=== PATIENT | female | born 1945 | race Caucasian/White ===

== ENCOUNTER 2016-11-20 08:14 | Day surgery (SDC) | payer BC ==
[~2016-11-20 08:14] MED LIST: ACETAMINOPHEN 1,000 MG/100 ML BTL IV ONE
[2016-11-20] MEDS ORDERED: HYDROCODONE/APAP 5/325MG TABLET PO ONE (14:09)
[2016-11-20] MEDS ORDERED: SEVOFLURANE 250 ML INH ONE (14:09)
[2016-11-20] MEDS ORDERED: FENTANYL PF 100MCG/2ML VIAL IV ONE (14:09)
[2016-11-20] MEDS ORDERED: LIDOCAINE 2% MDV (20MG/ML) 20ML VIAL IV ONE (14:09)
[2016-11-20] MEDS ORDERED: MIDAZOLAM HCL 2MG/2ML VIAL IV ONE (14:09)
[2016-11-20] MEDS ORDERED: BUPIVACAINE 0.25% W/EPI MPF 30ML VIAL IVP ONE (14:09)
[2016-11-20] MEDS ORDERED: KETOROLAC 30 MG/ML VIAL IVP ONE (14:09)
[2016-11-20] MEDS ORDERED: ONDANSETRON HCL IV 4 MG/2 ML VIAL IVP ONE (14:09)
[2016-11-20] MEDS ORDERED: PROPOFOL 10 MG/ML VIAL IV ONE (14:09)
--- NOTE | 2016-11-23 10:10 | Operative Note ---
DATE OF SURGERY: 11/20/2016 Surgeon: Farhad Koch DO PREOPERATIVE DIAGNOSIS: Osteoarthritis of the right knee. POSTOPERATIVE DIAGNOSES: 1. Torn medial and lateral meniscus, right knee. 2. Osteoarthritis, right knee. OPERATION: 1. Arthroscopic partial medial and lateral meniscectomy, right knee. 2. Arthroscopic chondroplasty medial femoral condyle and patella, right knee. DESCRIPTION OF PROCEDURE: This 71-year-old female was taken to the operating room, placed in the supine position on the operating room table where general anesthetic was administered. The right lower extremity was elevated, exsanguinated, and tourniquet inflated to 300 mmHg. Arthroscopic knee marte applied. Right knee prepped with Hibiclens and draped in the usual sterile fashion. An inferolateral portal was established for the 4 mm arthroscope, and initial evaluation of the joint demonstrated advanced osteoarthritis of the patellofemoral articulation. Inferomedial portal was established, and probing demonstrated a grade 4 lesion on the medial facet extending to grade 3 changes on the median ridge and lateral facet. Some gross instability of the articular cartilage was present there, and chondroplasty was performed. The trochlea was subsequently examined with a large area of about 2 cm of full-thickness articular cartilage defect on the medial side of the trochlea with complete denuded articular cartilage noted there. The medial compartment was subsequently examined, and grade 2 chondromalacia of the entire weightbearing surface of the medial femoral condyle was present with some gross instability of that cartilage, and partial chondroplasty was performed. There was also evidence of degenerative tearing of the posterior horn of the medial meniscus. Utilizing the basket forceps and rotating shaver, we resected unstable fragments of meniscus. It appeared that there had been an old root tear of the medial meniscus but it was only partially detached. This was then re-probed and confirmed to be stable. We then directed our attention to the intracondylar notch and this was found to be normal. The lateral compartment was entered, and radial tears of the lateral meniscus were present at about the 9:30 to 10-o'clock position. Utilizing the basket forceps and rotating shaver, we resected unstable fragments of the lateral meniscus and formed a smooth contoured surface. This was then probed and found to be stable. The joint was copiously irrigated removing all chips of articular cartilage and meniscal tissue from the joint. The joint was suctioned and the instruments were removed. The portals infiltrated with 0.25% Marcaine with epinephrine. Sutures were placed in the arthroscopic puncture sites. Sterile dressings applied. Tourniquet and knee marte released and the patient taken to the recovery room in satisfactory condition. GROSS PATHOLOGY: This patient demonstrated severe full-thickness articular cartilage loss noted at the patellofemoral joint as discussed previously. In addition, tears of both the medial and lateral meniscus were present. Chondromalacia of the medial femoral condyle was present. MTDD
[2016-12-21] MEDS ORDERED: ACETAMINOPHEN 1,000 MG/100 ML BTL IV ONE (06:00)
== END 2016-11-20 11:31 | disposition home or self-care (01) ==
LOC: SUR 08:14
PROVIDERS: ATTEND Orthopaedic Surgery
DX: S83.281A Other tear of lateral meniscus, current injury, right knee, initial encounter (principal); S83.241A Other tear of medial meniscus, current injury, right knee, initial encounter; M17.11 Unilateral primary osteoarthritis, right knee; E03.9 Hypothyroidism, unspecified; E78.00 Pure hypercholesterolemia, unspecified
CPT/HCPCS: 29880; 29879; 01400; J1885; J2405; J3010

== ENCOUNTER 2016-11-26 00:05 | Emergency (ER) | payer BC ==
[2016-11-26] MEDS ORDERED: IBUPROFEN 600 MG TABLET PO ONE (00:24)
--- NOTE | 2016-11-26 00:30 | Emergency Department Record ---
History of Present Illness - General Chief complaint: Lower Extremity Pain Stated complaint: POST OP KNEE PAIN Time Seen by Provider: 11/26/16 00:12 Source: Patient Mode of Arrival: Ambulatory Limitations: No limitations - History of Present Illness Initial comments: 71 yo female presents to ED with a CC of right knee pain. Patient reports undergoing knee scope [address] Koch for a torn meniscus, reports that her pain and swelling symptoms have worsened over the past several days. Patient reports that she has not been taking anything for pain as Nada makes her nauseated. Patient reports that she has not taken any anti- inflammatory medications as she was recently started on Zithromax and told that these medications could interact. Patient reports pain from the posterior calf to the mid thigh region. Patient denies fevers, chills, warmth or redness to the knee or drainage from her incision site. MD Complaint: Joint pain Onset/Timin -: Days(s) Location: Right Radiation: Proximal, Distal Severity scale (1-10): 8 Consistency: Constant, Getting worse Worsens with: Nothing Associated Symptoms: Denies other symptoms - Related Data Home Medications Medication Instructions Recorded Confirmed Last Taken Calcium Carbonate/Vitamin D3 1 each PO DAILY 10/28/13 11/26/16 10/10/15 [Calcium 500-Vit D3 400 Tablet] Carvedilol [Coreg] 6.25 mg PO BIDWM 10/28/13 11/26/16 10/10/15 Levothyroxine Sodium [Synthroid] 1 tab PO DAILYTHY 10/28/13 11/26/16 10/10/15 Multivitamin [Multi-Vitamin Daily] 1 each PO DAILY 10/28/13 11/26/16 10/10/15 Aspirin Chewable 81 mg PO DAILY 10/10/15 11/26/16 10/10/15 Atorvastatin Calcium 20 mg PO DAILY 10/10/15 11/26/16 Unknown Naproxen [Naprosyn] 500 mg PO BID PRN 10/10/15 11/26/16 Unknown [place]-3 Fatty Acids/Fish Oil [Fish 1,000 mg PO ASDIR 10/10/15 11/26/16 Unknown Oil 1,000 mg Softgel] Previous Rx's Medication Instructions Recorded Ondansetron [Zofran Odt] 4 mg PO Q6H PRN #20 tab.rapdis 11/26/16 Allergies Allergy/AdvReac Type Severity Reaction Status Date / Time hydromorphone HCl AdvReac Intermediate NAUSEA AND Verified 11/19/16 08:35 [From Dilaudid] VOMITING meperidine [From Demerol] AdvReac Intermediate NAUSEA AND Verified 11/19/16 08: 35 VOMITING hydrocodone AdvReac VOMITING Verified 11/26/16 00:15 Travel Screening - Travel/Exposure Within Last 30 Days Have you traveled within the last 30 days?: No - Travel/Exposure Within Last Year Have you traveled outside the [place] in the last year?: No - Additonal Travel Details Have you been exposed to anyone with a communicable illness?: No - Travel Symptoms Symptom Screening: None Review of Systems Constitutional: Denies: Chills, Fever, Malaise, Night sweats Eyes: Denies: Eye discharge, Eye pain, Photophobia ENT: Denies: Congestion, Ear pain, Epistaxis Respiratory: Denies: Cough, Dyspnea Cardiovascular: Denies: Chest pain, Dyspnea on exertion Endocrine: Denies: Fatigue, Heat or cold intolerance Gastrointestinal: Denies: Abdominal pain, Nausea, Vomiting Genitourinary: Denies: Incontinence, Retention Musculoskeletal: Reports: Arthralgia. Denies: Back pain, Gout Skin: Reports: Bruising. 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") Comment:: no stents needed post heart attack - NEURO Hx Neuro Disorders: Yes Hx Headaches: Yes Hx of Migraines: Yes - GI Hx GI Disorders: Yes Hx Reflux: Yes (occasionally) - Hx Genitourinary Disorders: Yes Hx Bladder Problem: Yes (up 4x night-on Detrol) - ENDOCRINE Hx Endocrine Disorders: Yes Hx Thyroid Disease: Yes - MUSCULOSKELETAL Hx Musculoskeletal Disorders: Yes Hx Arthritis: Yes (knees, shoulder R, neck and fingers) Comment:: osteopenia - PSYCH Hx Psych Problems: Yes Hx Depression: Yes (intermittent) Comment:: since -"broken heart syndrome" - HEMATOLOGY/ONCOLOGY Hx Hematology/Oncology Disorders: No Family Medical History Any Significant Family History?: No Hx Cancer: Father, Mother Physical Exam - General General Appearance: Alert, Oriented x3, Cooperative, No acute distress Limitations: No limitations - Head Head exam: Atraumatic, Normocephalic, Normal inspection Head exam detail: negative: Abrasion, Contusion, Otto's sign, General tenderness, Hematoma, Laceration - Eye Eye exam: Normal appearance. negative: Conjunctival injection, Periorbital swelling, Periorbital tenderness - ENT Ear exam: negative: Auricular hematoma, Auricular trauma Nasal Exam: negative: Active bleeding, Discharge, Dried blood, Foreign body Mouth exam: negative: Drooling, Laceration, Muffled voice, Tongue elevation - Neck Neck exam: Normal inspection. negative: Meningismus, Tenderness - Respiratory Respiratory exam: Normal lung sounds bilaterally. negative: Rales, Respiratory distress, Rhonchi, Stridor - Cardiovascular Cardiovascular Exam: Regular rate, Normal rhythm, Normal heart sounds - GI/Abdominal GI/Abdominal exam: Soft. negative: Rebound, Rigid, Tenderness - Rectal Rectal exam: Deferred - exam: Deferred - Extremities Extremities exam: Tenderness, Other (There is mild STS to the right knee, no warmth or erythema on examination, incision sites are clean and intact. No evidence for septic joint on examination. There is ecchymosis to the inner thigh, strong distal DPP, achilles intact, no appreciable lower extremity edema on examination.). negative: Calf tenderness, Pedal edema - Back Back exam: Denies: CVA tenderness (R), CVA tenderness (L) - Neurological Neurological exam: Alert, Normal gait, Oriented X3 - Psychiatric Psychiatric exam: Normal affect, Normal mood - Skin Skin exam: Normal color. negative: Abrasion Type of lesion: negative: abrasion Course Vital Signs 11/26/16 00:09 Temperature 98.4 F Pulse Rate 85 Respiratory 20 Rate Blood Pressure 195/100 Pulse Ox 99 - Reevaluation(s) Reevaluation #1: 11/26/16 00:30 On examination, there is no evidence for a septic joint. Will attempt to exclude post-operative DVT via D-Dimer as doppler is unavailable and administer Motrin 600 mg as the patient has not been taking anything for her pain symptoms at home. Reevaluation #2: 11/26/16 00:57 D-Dimer 0.68. Discussed options with the patient for doppler examination, and the patient would like to go to [facility] for doppler examination. Case was discussed with Dr. Mejia, will accept transfer for further evaluation. 11/26/16 01:05 Disposition Disposition: Transfer Clinical Impression: Right leg pain Disposition: Acute Care Hospital Transfer Transfer To: [facility] Reason For Transfer: Doppler examination Accepting Physician: Roberto Time Discussed w/Accepting Physician: 01:00 Condition: (2) Stable Prescriptions: Ondansetron [Zofran Odt] 4 mg PO Q6H PRN #20 tab.rapdis PRN Reason: Nausea/Vomiting Forms: Patient Portal Access Time of Disposition: 01:01 Quality - Quality Measures Quality Measures: N/A - Blood Pressure Screening Blood Pressure Classification: Hypertensive Reading Systolic Measurement: 195 Diastolic Measurement: 100 Screening for High Blood Pressure: < First Hypertensive BP, F/U Documented > [ [id number]] First Hypertensive Follow-up Interventions: Referral to alternative/primary care provider.
== END 2016-11-26 01:13 | disposition short-term general hospital (02) ==
LOC: ER 00:05
DX: G89.18 Other acute postprocedural pain (principal); M25.561 Pain in right knee
CPT/HCPCS: 85379; 99283

== ENCOUNTER 2017-01-29 23:38 | Emergency (ER) | payer BC ==
[2017-01-29] MEDS ORDERED: NITROGLYCERIN 0.4MG SL TABLET #25 BTL SL PRN (23:43)
--- NOTE | 2017-01-29 23:49 | Emergency Department Record ---
History of Present Illness - General Chief Complaint: Chest Pain Stated Complaint: CHEST PAIN Time Seen by Provider: 01/29/17 23:42 Source: Patient Mode of Arrival: Ambulatory Limitations: No limitations - History of Present Illness Initial Comments: 71 yo female presents to ED with a CC of sever chest and neck pain symptoms that began approximately 45 minutes prior to arrival. Patient reports that her symptoms began as epigastric pain symptoms that she took pepto for before migrating to her chest. Patient reports that the pain as since migrated to the neck bilaterally and now reports a throbbing headache. Patient does report previous ID in 2010, has seen Korina Rodriguez previously for her cardiac care. Patient reports that she felt fine prior to the onset of her symptoms. MD Complaint: Chest pain Onset/Timin -: Minutes(s) Pain Location: Left chest Pain Radiation: Neck Severity: Severe Quality: Aching Consistency: Constant Improves With: Nothing Worsens With: Nothing Anginal Symptoms: Nausea Treatments Prior to Arrival: Aspirin, Other - Related Data Home Medications Medication Instructions Recorded Confirmed Last Taken Tolterodine Tartrate [Detrol LA] 4 mg PO DAILY 01/30/17 01/30/17 Unknown Trazodone HCl 100 mg PO QHS 01/30/17 01/30/17 Unknown Allergies Allergy/AdvReac Type Severity Reaction Status Date / Time meperidine [From Demerol] AdvReac Intermediate NAUSEA AND Verified 11/19/16 08: 35 VOMITING hydrocodone AdvReac VOMITING Verified 11/26/16 00:15 Review of Systems Constitutional: Denies: Chills, Fever, Malaise, Night sweats Eyes: Denies: Eye discharge, Eye pain ENT: Denies: Congestion, Ear pain, Epistaxis Respiratory: Denies: Cough, Dyspnea Cardiovascular: Reports: Chest pain. Denies: Dyspnea on exertion, Edema, Palpitations, Syncope Endocrine: Denies: Fatigue, Heat or cold intolerance Gastrointestinal: Reports: Nausea. Denies: Abdominal pain, Constipation, Vomiting Genitourinary: Denies: Incontinence, Retention Musculoskeletal: Reports: Neck pain. Denies: Arthralgia, Back pain, Gout, Joint swelling Skin: Denies: Bruising, Change in color Neurological: Reports: Headache. Denies: Abnormal gait, Confusion, Seizure Psychiatric: Denies: Anxiety Hematological/Lymphatic: Denies: Anemia, Blood Clots Past Medical History - SOCIAL HISTORY Smoking Status: Never smoker Drug Use: None - RESPIRATORY Hx Respiratory Disorders: No - CARDIOVASCULAR Hx Cardio Disorders: Yes 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") Comment:: no stents needed post heart attack - NEURO Hx Neuro Disorders: Yes Hx Headaches: Yes Hx of Migraines: Yes - GI Hx GI Disorders: Yes Hx Reflux: Yes (occasionally) - Hx Genitourinary Disorders: Yes Hx Bladder Problem: Yes (up 4x night-on Detrol) - ENDOCRINE Hx Endocrine Disorders: Yes Hx Thyroid Disease: Yes - MUSCULOSKELETAL Hx Musculoskeletal Disorders: Yes Hx Arthritis: Yes (knees, shoulder R, neck and fingers) Comment:: osteopenia - PSYCH Hx Psych Problems: Yes Hx Depression: Yes (intermittent) Comment:: since -"broken heart syndrome" - HEMATOLOGY/ONCOLOGY Hx Hematology/Oncology Disorders: No Family Medical History Hx Cancer: Father, Mother Physical Exam - General General Appearance: Alert, Oriented x3, Cooperative, Severe distress Limitations: No limitations - Head Head exam: Atraumatic, Normocephalic, Normal inspection Head exam detail: negative: Abrasion, Contusion, Otto's sign, General tenderness, Hematoma, Laceration - Eye Eye exam: Normal appearance. negative: Conjunctival injection, Periorbital swelling, Periorbital tenderness, Scleral icterus - ENT Ear exam: negative: Auricular hematoma, Auricular trauma Nasal Exam: negative: Active bleeding, Discharge, Dried blood, Foreign body Mouth exam: negative: Drooling, Laceration, Muffled voice, Tongue elevation - Neck Neck exam: Normal inspection. negative: Meningismus, Tenderness - Respiratory Respiratory exam: Normal lung sounds bilaterally. negative: Rales, Respiratory distress, Rhonchi, Stridor - Cardiovascular Cardiovascular Exam: Regular rate, Normal rhythm, Normal heart sounds - GI/Abdominal GI/Abdominal exam: Soft. negative: Rebound, Rigid, Tenderness - Rectal Rectal exam: Deferred - exam: Deferred - Extremities Extremities exam: Normal inspection. negative: Calf tenderness, Pedal edema, Tenderness - Back Back exam: Denies: CVA tenderness (R), CVA tenderness (L) - Neurological Neurological exam: Alert, Normal gait, Oriented X3 - Psychiatric Psychiatric exam: Normal affect, Normal mood - Skin Skin exam: Normal color. negative: Abrasion Type of lesion: negative: abrasion Course - Reevaluation(s) Reevaluation #1: 01/29/17 23:49 EKG: NSR 87 LAD, IVCD ST-T wave changes I, AVL Reevaluation #2: 01/30/17 00:03 EKG #2 NSR 91 LAD, IVCD Nonspecific ST-T wave changes I. AVL Unchanged from initial EKG Reevaluation #3: 01/30/17 00:23 Labs reviewed, BUN 24, Creatinine 1.0. Labs are otherwise grossly unremarkable for an acute process. Reevaluation #4: 01/30/17 01:13 CTA Chest/Abdomen/Pelvis: No acute findings CT Brain: No acute findings. Patient reassessed following Fentanyl IVP given in CT, headache pain is improved to 6/10, CP 5/10. Will initiate transfer for further evaluation. Reevaluation #5: 01/30/17 01:20 Case was discussed with Dr. Giles, will accept transfer for further cardiac evaluation. Will initiate Nitro qttp as well at this time. Medical Decision Making - Lab Data Result diagrams: 01/29/17 23:48 01/29/17 23:48 Disposition Disposition: Transfer Clinical Impression: Chest pain Qualifiers: Chest pain type: unspecified Qualified Code(s): R07.9 - Chest pain, unspecified Headache Qualifiers: Headache type: unspecified Headache chronicity pattern: acute headache Intractability: not intractable Qualified Code(s): R51 - Headache Disposition: Acute Care Hospital Transfer Transfer To: [facility] Reason For Transfer: Cardiac evaluation Accepting Physician: Chan Time Discussed w/Accepting Physician: 01:21 Condition: (2) Stable Forms: Patient Portal Access Time of Disposition: 01:21 Quality - Quality Measures Quality Measures: N/A - Blood Pressure Screening Does Patient Have Any of the Following: Active Dx of HTN Blood Pressure Classification: Hypertensive Reading Systolic Measurement: 146 Diastolic Measurement: 101 Screening for High Blood Pressure: Patient Exclusion, Hx of HTN [G9744]
[2017-01-29 23:51] LABS: BASO % 0.1 % (0-6); EOS % 0.2 % (0-6); GRAN % 69.2 % (47-80); HEMATOCRIT 44.5 % (35.0-47.0); HEMOGLOBIN 14.9 gm/dl (11.6-16.0); LYMPH % 22.5 % (16-45); MEAN CELL VOLUME 87.3 fl (81-97); MEAN CORPUSCULAR HEMOGLOBIN 29.2 pg (27-33); MEAN CORPUSCULAR HGB CONC 33.5 g/dl (32-36); MEAN PLATELET VOLUME 11.1 fl (7.4-10.4); PLATELET COUNT 184 K/uL (130-400); RED CELL DISTRIBUTION WIDTH 14.2 % (11.5-14.5); WHITE BLOOD COUNT W/O DIFF 9.6 K/uL (4.2-12.2)
[2017-01-29] MEDS: ASPIRIN 81 MG CHEWABLE TABLET PO ONE (23:51)
[2017-01-29] MEDS: ONDANSETRON HCL IV 4 MG/2 ML VIAL IVP ONE (23:51)
[2017-01-29] MEDS: MORPHINE SULFATE 5 MG/ML PFS IVP ONE (23:51)
[2017-01-30 00:13] LABS: ALB/GLOB RATIO 1.4 (1.1-1.8); ALBUMIN 4.1 g/dL (4.0-5.0); ALKALINE PHOSPHATASE 67 U/L (35-104); ALT/SGPT 16 U/L (<33); AST/SGOT 17 U/L (10.0-35.0); BLOOD UREA NITROGEN 24 mg/dL (8-23); CKMB 1.8 ng/mL (<3.77); CREATINE PHOSPHOKINASE 45 U/L (26-192); EST GLOMERULAR FILTRATION RATE 58 mL/min; GLUCOSE,RANDOM 144 mg/dL (74-109)
[2017-01-30 00:18] LABS: TROPONIN I < 0.30 ng/mL (0.00-0.300)
[2017-01-30] MEDS: FENTANYL PF 100MCG/2ML VIAL IVP ONE (00:20)
[2017-01-30] MEDS: DIPHENHYDRAMINE HCL IV 50 MG/ML VIAL IVP ONE (00:50)
[2017-01-30] MEDS: NITROGLYCERIN/D5W 50 MG/250 ML ML IV SCH (01:39)
--- NOTE | 2017-02-01 08:15 | CT SCAN REPORT ---
EXAM: CT SCAN OF THE BRAIN WITHOUT CONTRAST HISTORY: HEAD PAIN FOLLOWING EPIDURAL INJECTION. TECHNIQUE: Standard CT imaging of the brain was preformed without contrast. Comparison: None. FINDINGS: The ventricles and subarachnoid spaces are normal for the patient's age. The brain parenchyma is unremarkable. There is no mass, mass effect, intracranial hemorrhage, visible acute infarct, or abnormal extraaxial fluid. The skull is intact. The orbits, sinuses, and mastoids are normal. IMPRESSION: NEGATIVE NONCONTRAST CT SCAN OF THE BRAIN. JOB NUMBER: [id number] [facility]
--- NOTE | 2017-02-01 08:45 | CT ANGIOGRAM REPORT ---
EXAM: CT ANGIOGRAM OF THE CHEST, ABDOMEN AND PELVIS WITH AND WITHOUT CONTRAST HISTORY: CHEST PAIN, ABDOMINAL PAIN, AND NECK PAIN. HEADACHE. TECHNIQUE: Standard CT angiography of the chest, abdomen, and pelvis was performed with and without contrast. 90 ml of Omnipaque 350 were administered. Additional multiplanar maximum intensity projection reformatted images were performed on an independent workstation under concurrent supervision. Comparison: 11/24/10. FINDINGS: CTA OF THE CHEST: The heart is mildly enlarged. There is no pericardial effusion. The ascending aorta measures up to 3.2 cm in maximal diameter and tapers distally. There is no aortic aneurysm or dissection. There are very minor atherosclerotic calcifications. The arch vessels are unremarkable. There is no mediastinal or hilar lymphadenopathy. The pulmonary arterial tree appears normal. There is mild dependent atelectasis within both lungs. There are no acute infiltrates or effusions. There are no suspicious pulmonary nodules. The chest wall and axillary regions appear normal. There are no acute osseous abnormalities. CTA OF THE ABDOMEN AND PELVIS: There are mild atherosclerotic calcifications within the aorta. The aorta is normal in caliber without dissection. There is minor atherosclerotic calcification and narrowing at the origins of the celiac trunk and superior mesenteric artery. No significant stenosis is identified. The renal arteries also demonstrate mild atherosclerotic calcification and narrowing at the origins. This is not significant. The inferior mesenteric artery is normal. The aortic bifurcation and iliac vessels are normal. The liver parenchyma is normal. The gallbladder is incompletely distended. There is minor soft tissue prominence at the gallbladder fundus which may be secondary to incomplete distention and a focal fold. A follow-up nonemergent gallbladder ultrasound is recommended for further characterization. The biliary tree is normal. The pancreatic duct is mildly prominent measuring 4 mm in diameter. The pancreas is otherwise normal. The spleen and adrenal glands are normal. There is a 1.5 cm cyst at the upper pole of the right kidney. The kidneys and ureters are otherwise normal. There is no retroperitoneal lymphadenopathy. The stomach and epigastrium are normal. There is moderate stool within the colon. The large and small bowel loops are otherwise normal. There are no focal inflammatory changes. There is no pneumoperitoneum or ascites. The uterus and adnexa appear normal. The urinary bladder is unremarkable. There are no acute osseous abnormalities. Degenerative changes are present within the spine. There is a small amount of air within the epidural space within the upper thoracic and cervical spine regions from the patient's recent epidural injection. There are no abnormal epidural fluid collections. IMPRESSION: 1. NO EVIDENCE FOR AORTIC ANEURYSM, DISSECTION, OR SIGNIFICANT VESSEL STENOSIS WITHIN THE CHEST, ABDOMEN, OR PELVIS. 2. NO ACUTE PATHOLOGY WITHIN THE CHEST, ABDOMEN, OR PELVIS. 3. A SMALL AMOUNT OF AIR IS PRESENT WITHIN THE EPIDURAL SPACE WITHIN THE UPPER THORACIC AND CERVICAL SPINE REGIONS FROM THE PATIENT'S RECENT EPIDURAL INJECTION. THERE ARE NO ABNORMAL EPIDURAL FLUID COLLECTIONS. 4. ADDITIONAL CHRONIC FINDINGS ABOVE. 5. SOFT TISSUE PROMINENCE AT THE GALLBLADDER FUNDUS OF UNCERTAIN ETIOLOGY. A FOLLOW-UP GALLBLADDER ULTRASOUND IS RECOMMENDED FOR FURTHER CHARACTERIZATION. JOB NUMBER: [id number] [facility]
== END 2017-01-30 02:17 | disposition short-term general hospital (02) ==
LOC: ER 23:38
DX: R07.89 Other chest pain (principal); M54.2 Cervicalgia; R10.13 Epigastric pain; R51 Headache; R11.0 Nausea; I25.2 Old myocardial infarction
CPT/HCPCS: 99285 ×2; 96374; 96375; 82550; 85025; 82553; 84484; 80053; 71275; 70450; 74174; 93005; 93010; Q9967; J2405; J3010; J2270; J1200

== ENCOUNTER 2017-08-08 14:14 | Emergency (ER) | payer BC ==
--- NOTE | 2017-08-08 14:35 | Emergency Department Record ---
History of Present Illness - General Chief Complaint: Fall Injury Stated Complaint: FELL HIT HEAD Source: Patient, Family Mode of Arrival: Ambulatory - History of Present Illness Initial Comments: 72 yo female fell standing. Her right knee knee gave out. She hit the forehead , right hip, knee and ankle. No LOC. NO anti-coagulants. She is ambulatory. No memory loss. No syncope. No significant neck pain. No chest pain. No recent changes in her health. Complaint: Fall Onset/Timin -: Hour(s) Fall From: Down stairs (#) When Fall Occurred: 1 hour [employer] [employer] Fall Witnessed: No Place Fall Occurred: Home Loss of Consciousness: None Prolonged Down Time?: No Symptoms Prior to Fall: None Location: Head Severity: Mild Severity scale (1-10): 2 Quality: Aching Context: Tripped/slipped - Brandan Coma Scale Eye Response: (4) Open spontaneously Motor Response: (6) Obeys commands Verbal Response: (5) Oriented Brandan Total: 15 - Related Data Allergies Allergy/AdvReac Type Severity Reaction Status Date / Time meperidine [From Demerol] AdvReac Intermediate NAUSEA AND Verified 08/08/17 14: 18 VOMITING hydrocodone AdvReac VOMITING Verified 08/08/17 14:18 hydromorphone [From Dilaudid] AdvReac NAUSEA AND Verified 08/08/17 14:22 VOMITING Travel Screening - Travel/Exposure Within Last 30 Days Have you traveled within the last 30 days?: No - Travel/Exposure Within Last Year Have you traveled outside the [place] in the last year?: Yes Location Detail:: [place], [place], [place] - Additonal Travel Details Have you been exposed to anyone with a communicable illness?: No - Travel Symptoms Symptom Screening: None Review of Systems Constitutional: Denies: Chills, Fever, Malaise, Weakness Eyes: Denies: Eye discharge, Eye pain, Photophobia, Vision change ENT: Denies: Congestion, Throat pain Respiratory: Denies: Cough Cardiovascular: Denies: Chest pain, Syncope Endocrine: Denies: Fatigue Gastrointestinal: Denies: Abdominal pain, Diarrhea, Nausea, Vomiting Genitourinary: Denies: Discharge, Dysuria, Urgency Musculoskeletal: Reports: Arthralgia Skin: Denies: Bruising, Change in color, Rash Neurological: Denies: Abnormal gait, Confusion, Headache, Numbness, Paresthesias , Tingling, Tremors, Vertigo, Weakness Psychiatric: Denies: Anxiety Hematological/Lymphatic: Denies: Blood Clots, Easy bleeding, Easy bruising, Swollen glands Past Medical History - SOCIAL HISTORY Smoking Status: Never smoker Alcohol Use: None Drug Use: None - RESPIRATORY Hx Respiratory Disorders: No - CARDIOVASCULAR Hx Cardio Disorders: Yes 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") Comment:: no stents needed post heart attack - NEURO Hx Neuro Disorders: Yes Hx Headaches: Yes Hx of Migraines: Yes - GI Hx GI Disorders: Yes Hx Reflux: Yes (occasionally) - Hx Genitourinary Disorders: Yes Hx Bladder Problem: Yes (up 4x night-on Detrol) - ENDOCRINE Hx Endocrine Disorders: Yes Hx Thyroid Disease: Yes - MUSCULOSKELETAL Hx Musculoskeletal Disorders: Yes Comment:: osteopenia - PSYCH Hx Psych Problems: Yes Hx Depression: Yes (intermittent) Comment:: since -"broken heart syndrome" - HEMATOLOGY/ONCOLOGY Hx Hematology/Oncology Disorders: No Family Medical History Any Significant Family History?: Yes Hx Cancer: Father, Mother Physical Exam - General General Appearance: Alert, Oriented x3, Cooperative, No acute distress Limitations: No limitations - Head Head exam: Normocephalic. negative: Atraumatic, Normal inspection Head exam detail: Abrasion, Contusion, Hematoma Image of Face/Head: 1 - tender, bruised, swelling, no laceration 2 - abarasion, superficial - Eye Eye exam: Normal appearance, PERRL. negative: Conjunctival injection, Periorbital swelling, Scleral icterus Pupils: negative: Irregular, Unequal - ENT ENT exam: Normal exam, Mucous membranes moist Ear exam: Normal external inspection Nasal Exam: negative: Normal inspection (abrasion), Active bleeding, Discharge, Dried blood, Sinus tenderness Mouth exam: Normal external inspection Teeth exam: Normal inspection Throat exam: Normal inspection - Neck Neck exam: Normal inspection, Full ROM. negative: Tenderness - Respiratory Respiratory exam: Normal lung sounds bilaterally. negative: Respiratory distress - Cardiovascular Cardiovascular Exam: Regular rate, Normal rhythm, Normal heart sounds Peripheral Pulses: 2+: Radial (R), Radial (L) - GI/Abdominal GI/Abdominal exam: Soft. negative: Guarding, Rebound, Rigid, Tenderness - Rectal Rectal exam: Deferred - exam: Deferred - Extremities Extremities exam: Normal inspection, Full ROM, Joint swelling, Normal capillary refill, Tenderness. negative: Calf tenderness, Pedal edema Image of Full Body: 1 - mild anterior bruising, full ROM, intact skin 2 - mild lateral tenderness, full ROM, no limitation 3 - mild lateral tenderness, no swellling, pain with wt bearing - Back Back exam: Reports: Normal inspection, Full ROM. Denies: Muscle spasm, Rash noted, Tenderness - Neurological Neurological exam: Alert, Normal gait, Oriented X3, Reflexes normal - Psychiatric Psychiatric exam: Normal affect, Normal mood - Skin Skin exam: Dry, Intact, Normal color, Warm Course Vital Signs 08/08/17 14:22 Temperature 98.1 F Pulse Rate 89 Respiratory 20 Rate Blood Pressure 168/90 Pulse Ox 97 - Reevaluation(s) Reevaluation #1: Declined pain medication at this time 08/08/17 14:38 08/08/17 16:57 The HCT was negative for intracranial injury or bleeding. STS of the forehead The C Spine CT was negative for acute fracture The Hip was negative for acute injury or fracture The Knee was negative for acute injury or fracture, possible small effusion The Ankle was negative for acute injury or fracture We discussed the radiology reports We discussed reasons to return as well as follow up the ER studies Disposition Disposition: Discharge Clinical Impression: Contusion of hip, right Head contusion Qualifiers: Encounter type: initial encounter Contusion of head detail: scalp Qualified Code(s): S00.03XA - Contusion of scalp, initial encounter Contusion of knee, right Qualifiers: Encounter type: initial encounter Qualified Code(s): S80.01XA - Contusion of right knee, initial encounter Disposition: Home, Self-Care Condition: (1) Good Instructions: Knee Sprain (ED), Head Injury (ED) Additional Instructions: Ice any tender, bruised or swollen areas to minimize bruising Call your doctor to review this ER visit and the tests performed Return immediately if you have any uncontrolled pain, new pain or concerns Forms: Patient Portal Access Time of Disposition: 17:05 Quality - Quality Measures Quality Measures: Blunt Head Trauma (>2yr) - Brandan Coma Scale Brandan Coma Scale: Brandan Coma Scale Eye Response: (4) Open spontaneously Motor Response: (6) Obeys commands Verbal Response: (5) Oriented [place] Total: 15 - Blunt Head Trauma - Adult Quality Measure: Measure #415: Utilization of CT for Minor Blunt Head Trauma ICD10 Codes Entered: Yes Was CT ordered: Yes Does Patient Have Any of the Following: No Exclusions Patient Presented Within 24 Hours of Injury: Yes Brandan Score: [address] for Minor Blunt Head Trauma: < CT Done, Appropriate Indication > [G9529] Additional Inclusion Criteria: Within 24hrs (AND) GCS of 15 (AND) CT ordered. [ G9530] Indications For CT: Age 65 Years and Older - Blood Pressure Screening Does Patient Have Any of the Following: Active Dx of HTN Blood Pressure Classification: Hypertensive Reading Systolic Measurement: 146 Diastolic Measurement: 98 Screening for High Blood Pressure: Patient Exclusion, Hx of HTN [G9744]
[2017-08-08] MEDS ORDERED: ACETAMINOPHEN 500 MG TABLET PO ONE (16:14)
--- NOTE | 2017-08-09 22:08 | RADIOLOGY REPORT ---
EXAM: ANKLE RIGHT 3 VIEWS HISTORY: PATIENT HAS A HISTORY OF FALL. TECHNIQUE: Multiple views of the right ankle are provided without comparison examinations. FINDINGS: There is no radiographic evidence of a fracture or dislocation of the right ankle. The ankle mortise is intact. No significant soft tissue swelling is noted. Anterior tibiotalar fat pat is unremarkable. IMPRESSION: NO RADIOGRAPHIC EVIDENCE OF AN ACUTE PROCESS INVOLVING THE RIGHT ANKLE. JOB NUMBER: [id number] [facility]
--- NOTE | 2017-08-09 22:14 | CT SCAN REPORT ---
EXAM: CT SCAN CERVICAL SPINE WO CONTRAST HISTORY: PATIENT HAS A HISTORY OF FALL. TECHNIQUE: Serial axial CT scan of the cervical spine was performed at 2.5 mm intervals from the base of the skull to the thoracic inlet without the use of intravenous contrast. Sagittal and coronal reconstructions are provided. COMPARISON: Comparison CT scan of the head dated 01/30/2017 is provided. FINDINGS: The vertebral body height, contour, AP alignment of the cervical spine is within normal limits. Moderate facet arthropathy is noted throughout the cervical spine. There is no CT evidence of a fracture or dislocation of the cervical spine. The prevertebral soft tissue and parapharyngeal fat are unremarkable. The bilateral parotid, submandibular glands are unremarkable. The thyroid gland appears atrophic. Questionable calcified right thyroid lobe nodule is noted. There is no CT evidence of cervical lymphadenopathy. Airways are patent. Lung windows of the lung apices are unremarkable. IMPRESSION: DEGENERATIVE CHANGES OF THE CERVICAL SPINE ARE NOTED WITHOUT CT EVIDENCE OF AN ACUTE PROCESS INVOLVING THE CERVICAL SPINE. JOB NUMBER: [id number] [facility]
--- NOTE | 2017-08-09 22:19 | CT SCAN REPORT ---
EXAM: CT SCAN HEAD WO CONTRAST HISTORY: PATIENT HAS A HISTORY OF FALL. TECHNIQUE: Serial axial CT scan of the head was performed at 2.5 mm intervals from the base of the skull to the apex without the use of intravenous contrast. Sagittal and coronal reconstructions are provided. COMPARISON: Comparison CT scan of the head dated 01/30/2017 is provided. FINDINGS: Mild to moderate generalized parenchymal volume loss is noted. There is no mass or mass effect. Mendez and white differentiation appear within normal limits. There is no CT evidence of intra or extraaxial fluid collection to suggest bleeding. Soft tissue hematoma is noted within the right frontal scalp. Bone windows demonstrate no CT evidence of a fracture or dislocation of the skull. Paranasal sinuses are unremarkable. IMPRESSION: SOFT TISSUE SCALP HEMATOMA WITHIN THE RIGHT FRONTAL SCALP IS NOTED WITHOUT CT EVIDENCE OF AN ACUTE INTRACRANIAL PROCESS. JOB NUMBER: [id number] [facility]
--- NOTE | 2017-08-09 22:32 | RADIOLOGY REPORT ---
EXAM: HIP,UNILAT, 2-3 VIEW RIGHT HISTORY: HISTORY OF FALL. TECHNIQUE: An AP view of the pelvis and two views of the right hip are provided along with a comparison study dated 11/06/2016. FINDINGS: There is no radiographic evidence of a fracture or dislocation of the pelvis. No significant soft tissue abnormalities are visualized. There is no radiographic evidence of a fracture or dislocation of the right hip. No significant soft tissue abnormalities are visualized. No radiopaque foreign bodies are identified. Alignment of the right hip is anatomic. IMPRESSION: NO RADIOGRAPHIC EVIDENCE OF AN ACUTE PROCESS INVOLVING THE RIGHT HIP. JOB NUMBER: [id number] [facility]
--- NOTE | 2017-08-09 22:34 | RADIOLOGY REPORT ---
EXAM: KNEE, RIGHT 3 VIEWS HISTORY: PATIENT HAS A HISTORY OF FALL. TECHNIQUE: Three views of the right knee are provided along with a comparison study dated 11/06/2016. FINDINGS: There is no radiographic evidence of a fracture or dislocation of the right knee. Mild suprapatellar bursal effusion is noted. No significant soft tissue abnormalities are visualized. IMPRESSION: MILD SUPRAPATELLAR BURSAL EFFUSION IS NOTED WITHOUT RADIOGRAPHIC EVIDENCE OF A FRACTURE OR DISLOCATION OF THE RIGHT KNEE. JOB NUMBER: [id number] [facility]
== END 2017-08-08 17:13 | disposition home or self-care (01) ==
LOC: ER 14:14
DX: S70.01XA Contusion of right hip, initial encounter (principal); S00.03XA Contusion of scalp, initial encounter; S80.01XA Contusion of right knee, initial encounter; M25.571 Pain in right ankle and joints of right foot; M54.2 Cervicalgia; I10 Essential (primary) hypertension; I25.2 Old myocardial infarction; W10.8XXA Fall (on) (from) other stairs and steps, initial encounter; Y92.009 Unspecified place in unspecified non-institutional (private) residence as the place of occurrence of the external cause
CPT/HCPCS: 70450; 72125; 99283; 99284

== ENCOUNTER 2017-10-14 00:13 | Emergency (ER) | payer BC ==
[2017-10-14] MEDS ORDERED: MORPHINE SULFATE 4MG/ML PREFILLED SYRINGE IVP ONE ×2 (00:23→01:14)
[2017-10-14] MEDS ORDERED: ACETAMINOPHEN 1,000 MG/100 ML BTL IVPB ONE (00:24)
[2017-10-14] MEDS ORDERED: ONDANSETRON HCL IV 4 MG/2 ML VIAL IVP ONE (00:24)
--- NOTE | 2017-10-14 00:31 | Emergency Department Record ---
History of Present Illness - General Chief Complaint: Back Pain/Injury Stated Complaint: BACK PAIN Time Seen by Provider: 10/14/17 00:16 Source: Patient Mode of Arrival: Ambulatory Limitations: No limitations - History of Present Illness Initial Comments: 72 yo female presents with increasing lumbar back pain. She does have chronic pain that has been treated by Dr Mcmillan. She had had recent injections in the last month that did not provide relief. The pain is lower lumbar radiating into the bilateral hips. She has some burning down the left leg. No weakness, numbness, changes in bowel or bladder. No peroneal numbness. No incontinence. The pain is very positional. No abdominal pain. No foot drop. MD Complaint: Back pain, Back injury Onset/Timin -: Days(s) Similar Symptoms Previously: Yes Place: Home Radiation: Buttocks, Left leg Severity: Severe Quality: Burning Consistency: Constant, Getting worse Improves With: None Worsens With: None Context: Other Associated Symptoms: Denies other symptoms Treatments Prior to Arrival: Prescription analgesics - Related Data Allergies Allergy/AdvReac Type Severity Reaction Status Date / Time meperidine [From Demerol] AdvReac Intermediate NAUSEA AND Verified 10/14/17 00: 22 VOMITING hydrocodone AdvReac VOMITING Verified 10/14/17 00:22 hydromorphone [From Dilaudid] AdvReac NAUSEA AND Verified 10/14/17 00:22 VOMITING Travel Screening - Travel/Exposure Within Last 30 Days Have you traveled within the last 30 days?: No - Travel/Exposure Within Last Year Have you traveled outside the [place] in the last year?: No - Additonal Travel Details Have you been exposed to anyone with a communicable illness?: No - Travel Symptoms Symptom Screening: None Review of Systems Constitutional: Denies: Chills, Fever, Malaise, Weakness Eyes: Denies: Eye discharge ENT: Denies: Congestion, Throat pain Respiratory: Denies: Cough, Dyspnea Cardiovascular: Denies: Chest pain, Palpitations, Syncope Endocrine: Denies: Fatigue Gastrointestinal: Denies: Abdominal pain, Diarrhea, Nausea, Vomiting Genitourinary: Reports: Frequency. Denies: Discharge, Dysuria, Hematuria, Incontinence, Retention, Urgency Musculoskeletal: Reports: Back pain, Myalgia. Denies: Neck pain Skin: Denies: Bruising, Change in color, Rash Neurological: Reports: As per HPI, Paresthesias. Denies: Abnormal gait, Headache, Numbness, Tingling, Tremors, Vertigo, Weakness Psychiatric: Denies: Anxiety Hematological/Lymphatic: Denies: Blood Clots, Easy bleeding, Easy bruising Past Medical History - SOCIAL HISTORY Smoking Status: Never smoker Alcohol Use: None Drug Use: None - RESPIRATORY Hx Respiratory Disorders: No - CARDIOVASCULAR Hx Cardio Disorders: Yes 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") Comment:: no stents needed post heart attack - NEURO Hx Neuro Disorders: Yes Hx Headaches: Yes Hx of Migraines: Yes - GI Hx GI Disorders: Yes Hx Reflux: Yes (occasionally) - Hx Genitourinary Disorders: Yes Hx Bladder Problem: Yes (up 4x night-on Detrol) - ENDOCRINE Hx Endocrine Disorders: Yes Hx Thyroid Disease: Yes - MUSCULOSKELETAL Hx Musculoskeletal Disorders: Yes Comment:: osteopenia - PSYCH Hx Psych Problems: Yes Hx Depression: Yes (intermittent) Comment:: since -"broken heart syndrome" - HEMATOLOGY/ONCOLOGY Hx Hematology/Oncology Disorders: No Family Medical History Any Significant Family History?: No Hx Cancer: Father, Mother Physical Exam - General General Appearance: Alert, Oriented x3, Cooperative, No acute distress Limitations: No limitations - Head Head exam: Atraumatic, Normal inspection - Eye Eye exam: Normal appearance. negative: Conjunctival injection, Scleral icterus - ENT ENT exam: Normal exam, Mucous membranes moist Ear exam: Normal external inspection Nasal Exam: Normal inspection Mouth exam: Normal external inspection - Neck Neck exam: Normal inspection, Full ROM. negative: Tenderness - Respiratory Respiratory exam: Normal lung sounds bilaterally. negative: Respiratory distress - Cardiovascular Cardiovascular Exam: Regular rate, Normal rhythm, Normal heart sounds - GI/Abdominal GI/Abdominal exam: Soft. negative: Tenderness - Rectal Rectal exam: Deferred - exam: Deferred - Extremities Extremities exam: Normal inspection, Full ROM, Normal capillary refill. negative: Calf tenderness, Joint swelling, Pedal edema, Tenderness - Back Back exam: Reports: Muscle spasm, Paraspinal tenderness, Tenderness (low lumbar sacral paraspinal tenderness, no mass), Vertebral tenderness. Denies: CVA tenderness (R), CVA tenderness (L), Full ROM, Rash noted - Neurological Neurological exam: Alert, Normal gait (no foot drop, walks unassisted), Oriented X3, Reflexes normal, Other (No foot drop, normal foot and toe flexion and extension). negative: Abnormal gait, Altered, Motor sensory deficit - Psychiatric Psychiatric exam: Normal affect, Normal mood. negative: Agitated, Anxious - Skin Skin exam: Dry, Intact, Normal color, Warm Course Vital Signs 10/14/17 00:18 Temperature 98.6 F Pulse Rate [ 83 Pulse Ox Probe] Respiratory 20 Rate Blood Pressure 113/66 [Left Arm] Pulse Ox 97 - Reevaluation(s) Reevaluation #1: 10/14/17 00:44 UA is normal EMR reviewed for prior imaging. 10/14/17 01:15 Recheck the patient has some relief but pain still present with trying to stand She has not had lumbar XR's recently so XR ordered. 10/14/17 03:02 [facility] report reviewed. Negative for fracture or dislocation, 0.5cm retrolithesis L5 of S1, multilevel degenerative changes L4-S1. Multilevel facet arthropathy lower lumbar. The patient was informed of the results. She still has pain but better controlled. No numbness, weakness. She ambulates freely without limitation. I discussed options of transfer vs outpatient follow up for MRI. She prefers DC home given her pain is controlled. She will call her PCP for next available MRI. We discussed importance of close follow up and and reasons to return or be seen for uncontrolled or worsening pain. She has scheduled follow up with her pain Specialist on Wednesday. 10/14/17 18:37 Disposition Disposition: Discharge Clinical Impression: Lumbar pain, Sciatic leg pain Disposition: Home, Self-Care Condition: (1) Good Instructions: Sciatica (ED) Additional Instructions: Return or be seen if the pain worsens or is not controlled Call your doctors today to schedule follow up and likely and MRI Forms: Patient Portal Access Time of Disposition: 04:40 Quality - Quality Measures Quality Measures: N/A, Blunt Head Trauma (>2yr) - Blunt Head Trauma - Adult Quality Measure: Measure #415: Utilization of CT for Minor Blunt Head Trauma ICD10 Codes Entered: Yes Was CT ordered: No Brandan Score: Please complete [place] Coma Scale above Utilization of CT for Minor Blunt Head Trauma: Not Eligible For Measure Additional Inclusion Criteria: More than 24hrs (OR) GCS not 15 (OR) CT not ordered. Not Eligible Reason: CT Not Ordered - Blood Pressure Screening Does Patient Have Any of the Following: No Blood Pressure Classification: Pre-Hypertensive BP Reading Systolic Measurement: 134 Diastolic Measurement: 75 Screening for High Blood Pressure: < Pre-Hypertensive BP, F/U Documented > [ G8950] Pre-Hypertensive Follow-up Interventions: Referral to alternative/primary care provider.
[2017-10-14 00:32] LABS: URINE APPEARANCE CLEAR; URINE BILIRUBIN NEGATIVE (NEGATIVE); URINE BLOOD NEGATIVE (NEGATIVE); URINE COLOR YELLOW; URINE GLUCOSE (UA) NEGATIVE (NEGATIVE); URINE KETONE NEGATIVE (NEGATIVE); URINE LEUKOCYTE ESTERASE NEGATIVE (NEGATIVE); URINE NITRITE NEGATIVE (NEGATIVE); URINE PROTEIN NEGATIVE (NEGATIVE); URINE UROBILINOGEN 0.2 E.U./dL (0.20 - 1.00)
[2017-10-14] MEDS ORDERED: KETOROLAC 30 MG/ML VIAL IVP ONE (01:14)
[2017-10-14] MEDS ORDERED: METHYLPREDNISOLONE PF 125MG/VIAL IVP ONE (03:17)
[2017-10-14] MEDS ORDERED: DIPHENHYDRAMINE HCL 50 MG/ML VIAL IVP ONE (03:17)
--- NOTE | 2017-10-15 07:28 | RADIOLOGY REPORT ---
DATE: 10/14/2017. EXAM: LUMBAR SPINE. HISTORY: Back pain. TECHNIQUE: Six views of the lumbar spine. COMPARISON: Prior lumbar spine dated 11/27/2015. FINDINGS: Osteopenia. Five [id number] lumbar type vertebral bodies. Minimal loss of height of L5, likely secondary to chronic endplate degenerative change. Correlate with any pain in the region. No discrete pars defects. Equivocal retrolisthesis of L4 with respect to L5. Endplate degenerative changes and facet arthropathy throughout the lumbar spine. IMPRESSION: EQUIVOCAL LOSS OF HEIGHT OF THE L5 LEVEL LIKELY SECONDARY TO CHRONIC SUPER ENDPLATE DEGENERATIVE CHANGES. CORRELATE WITH ANY PAIN IN THE REGION. OSTEOPENIA WITH MULTILEVEL DEGENERATIVE CHANGE. JOB NUMBER: [id number] [facility]
== END 2017-10-14 04:50 | disposition home or self-care (01) ==
LOC: ER 00:13
DX: M54.5 Low back pain (principal); M51.36 Other intervertebral disc degeneration, lumbar region; I25.2 Old myocardial infarction
CPT/HCPCS: 99284 ×2; 96376; 96365; 96375; 81003; 72110; J1885; J2405; J2274; J1200; J2930

== ENCOUNTER 2018-06-13 09:13 | Emergency (ER) | payer BC ==
[2018-06-13 09:56] LABS: BASO % 0.4 % (0-6); EOS % 0.9 % (0-6); GRAN % 75.3 % (47-80); HEMATOCRIT 42.5 % (35.0-47.0); HEMOGLOBIN 13.9 gm/dl (11.6-16.0); LYMPH % 14.3 % (16-45); MEAN CELL VOLUME 89.5 fl (81-97); MEAN CORPUSCULAR HEMOGLOBIN 29.3 pg (27-33); MEAN CORPUSCULAR HGB CONC 32.7 g/dl (32-36); MEAN PLATELET VOLUME 11.6 fl (7.4-10.4); MONO % 9.1 % (0-9); PLATELET COUNT 180 K/uL (130-400); RED BLOOD COUNT 4.75 M/uL (3.80-5.40); RED CELL DISTRIBUTION WIDTH 12.7 % (11.5-14.5); WHITE BLOOD COUNT W/O DIFF 9.3 K/uL (4.2-12.2)
[2018-06-13] MEDS: KETOROLAC 30 MG/ML VIAL IVP ONE (10:07)
[2018-06-13 10:23] LABS: URINE APPEARANCE CLEAR; URINE BILIRUBIN NEGATIVE (NEGATIVE); URINE BLOOD NEGATIVE (NEGATIVE); URINE COLOR YELLOW; URINE GLUCOSE (UA) NEGATIVE (NEGATIVE); URINE KETONE NEGATIVE (NEGATIVE); URINE LEUKOCYTE ESTERASE NEGATIVE (NEGATIVE); URINE NITRITE NEGATIVE (NEGATIVE); URINE PROTEIN NEGATIVE (NEGATIVE); URINE UROBILINOGEN 0.2 E.U./dL (0.20 - 1.00)
--- NOTE | 2018-06-13 10:43 | Emergency Department Record ---
History of Present Illness - General Chief Complaint: Back Pain/Injury Stated Complaint: back pain Time Seen by Provider: 06/13/18 09:30 Source: Patient, RN notes reviewed - History of Present Illness Initial Comments: right sided low back pain which started at 11 pm last night and it radiates down the right leg. and Tingling down the back side of leg and no weakness in her legs and DTR equal bilateral. PTKARINA HAD a back stimulator placed by Dr. Mcmillan one week ago. and she called Dr. Mcmillan and he instructed her to turn the stimulator off about one half hour before arrival to the ED and she told Dr Mcmillan she didn't want to drive to his office in [place] and she was told to go to the ED. Her next appointment with Dr Mcmillan is wednesday. Complaint: Back pain Similar Symptoms Previously: Yes Place: Home Radiation: Buttocks Severity scale (1-10): 10 Quality: Aching Consistency: Constant Improves With: None Worsens With: None Associated Symptoms: Denies other symptoms - Related Data Home Medications Medication Instructions Recorded Confirmed Last Taken Hydrocodone/Acetaminophen [[place] 1 each PO ASDIR 06/13/18 06/13/18 06/13/18 5-325 Tablet] Previous Rx's Medication Instructions Recorded Tizanidine HCl [Zanaflex] 4 mg PO Q8HR #20 capsule 06/13/18 Allergies Allergy/AdvReac Type Severity Reaction Status Date / Time morphine Allergy "jumping Verified 06/13/18 11:05 out of her skin" meperidine [From Demerol] AdvReac Intermediate NAUSEA AND Verified 06/13/18 11: 05 VOMITING hydrocodone AdvReac VOMITING Verified 06/13/18 11:05 hydromorphone [From Dilaudid] AdvReac NAUSEA AND Verified 06/13/18 11:05 VOMITING Travel Screening - Travel/Exposure Within Last 30 Days Have you traveled within the last 30 days?: No Review of Systems Reviewed: No additional complaints except as noted below Constitutional: Reports: As per HPI. Denies: Chills, Fever, Malaise, Night sweats, Weakness, Weight change Eyes: Reports: As per HPI. Denies: Eye discharge, Eye pain, Photophobia, Vision change ENT: Reports: As per HPI. Denies: Congestion, Dental pain, Ear pain, Epistaxis , Hearing loss, Throat pain Respiratory: Reports: As per HPI. Denies: Cough, Dyspnea, Hemoptysis, Stridor, Wheezes Cardiovascular: Reports: As per HPI. Denies: Arrhythmia, Chest pain, Dyspnea on exertion, Edema, Murmurs, Orthopnea, Palpitations, Paroxysmal nocturnal dyspnea, Rheumatic Fever, Syncope Endocrine: Reports: As per HPI. Denies: Fatigue, Heat or cold intolerance, Polydipsia, Polyuria Gastrointestinal: Reports: As per HPI. Denies: Abdominal pain, Constipation, Diarrhea, Hematemesis, Hematochezia, Melena, Nausea, Vomiting Genitourinary: Reports: As per HPI. Denies: Abnormal menses, Discharge, Dyspareunia, Dysuria, Frequency, Hematuria, Incontinence, Retention, Urgency Musculoskeletal: Reports: As per HPI, Back pain. Denies: Arthralgia, Gout, Joint swelling, Myalgia, Neck pain Skin: Reports: As per HPI. Denies: Bruising, Change in color, Change in hair/ nails, Lesions, Pruritus, Rash Neurological: Reports: As per HPI. Denies: Abnormal gait, Confusion, Headache, Numbness, Paresthesias, Seizure, Tingling, Tremors, Vertigo, Weakness Psychiatric: Reports: As per HPI. Denies: Anxiety, Auditory hallucinations, Depression, Homicidal thoughts, Suicidal thoughts, Visual hallucinations Hematological/Lymphatic: Reports: As per HPI. 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") Comment:: no stents needed post heart attack - NEURO Hx Neuro Disorders: Yes Hx Headaches: Yes Hx of Migraines: Yes - GI Hx GI Disorders: Yes Hx Reflux: Yes (occasionally) - Hx Genitourinary Disorders: Yes Hx Bladder Problem: Yes (up 4x night-on Detrol) - ENDOCRINE Hx Endocrine Disorders: Yes Hx Thyroid Disease: Yes - MUSCULOSKELETAL Hx Musculoskeletal Disorders: Yes Hx Back Injury: Yes Comment:: osteopenia, stenosis, bulging discs - PSYCH Hx Psych Problems: Yes Hx Depression: Yes (intermittent) Comment:: since -"broken heart syndrome" - HEMATOLOGY/ONCOLOGY Hx Hematology/Oncology Disorders: No Family Medical History Any Significant Family History?: Yes Hx Cancer: Father, Mother Physical Exam - General General Appearance: Alert, Oriented x3, Cooperative, No acute distress - Head Head exam: Normal inspection - Eye Eye exam: Normal appearance, PERRL Pupils: Normal accommodation - ENT ENT exam: Normal exam, Mucous membranes moist, Normal external ear exam, Normal orophraynx, TM's normal bilaterally Ear exam: Normal external inspection. negative: External canal tenderness Nasal Exam: Normal inspection. negative: Discharge, Sinus tenderness Mouth exam: Normal external inspection, Tongue normal Teeth exam: Normal inspection. negative: Dental caries Throat exam: Normal inspection. negative: Tonsillar erythema, Tonsillar exudate - Neck Neck exam: Normal inspection, Full ROM. negative: Tenderness - Respiratory Respiratory exam: Normal lung sounds bilaterally. negative: Respiratory distress - Cardiovascular Cardiovascular Exam: Regular rate, Normal rhythm, Normal heart sounds - GI/Abdominal GI/Abdominal exam: Soft, Normal bowel sounds. negative: Tenderness - Rectal Rectal exam: Deferred - exam: Deferred - Extremities Extremities exam: Normal inspection, Full ROM, Normal capillary refill. negative: Tenderness - Back Back exam: Reports: Normal inspection, Full ROM. Denies: Muscle spasm, Rash noted, Tenderness - Neurological Neurological exam: Alert, Normal gait, Oriented X3, Reflexes normal - Psychiatric Psychiatric exam: Normal affect, Normal mood - Skin Skin exam: Dry, Intact, Normal color, Warm Course Vital Signs 06/13/18 09:18 Temperature 98.0 F Pulse Rate 94 H Respiratory 16 Rate Blood Pressure 127/76 Pulse Ox 98 feeling better some - Reevaluation(s) Reevaluation #1: discussed case with Dr Mcmillan and he will call her tomorrow and they will decide on when she will be seen. 06/13/18 11:35 Medical Decision Making - Data Complexity MDM Data: Labs Ordered and/or Reviewed (UA negative), X-Ray Ordered and/or Reviewed (kidney stone in the kidney and bladder no obstructing stones and no hydroneprosis) - Lab Data Result diagrams: 06/13/18 09:45 06/13/18 09:45 Lab Results 06/13/18 06/13/18 06/13/18 Range/Units 09:34 09:45 09:45 WBC 9.3 (4.2-12.2) K/uL RBC 4.75 (3.80-5.40) M/uL Hgb 13.9 (11.6-16.0) gm/dl Hct 42.5 (35.0-47.0) % MCV 89.5 (81-97) fl MCH 29.3 (27-33) pg MCHC 32.7 (32-36) g/dl RDW 12.7 (11.5-14.5) % Plt Count 180 (130-400) K/uL MPV 11.6 H (7.4-10.4) fl Gran % 75.3 (47-80) % Lymphocytes % 14.3 L (16-45) % Monocytes % 9.1 H (0-9) % Eosinophils % 0.9 (0-6) % Basophils % 0.4 (0-6) % Sodium 141 (136-145) mmol/L Potassium 4.3 (3.4-4.5) mmol/L Chloride 104 (98-107) mmol/L Carbon Dioxide 25.0 (22-29) mmol/L Anion Gap 12.0 (7-16) BUN 22 (8-23) mg/dL Creatinine 1.0 H (0.5-0.9) mg/dL Estimated GFR 57 mL/min Random Glucose 92 (74-109) mg/dL Calcium 9.3 (8.8-10.2) mg/dL Urine Color Yellow Urine Appearance Clear Urine pH 6.5 (5.0-8.0) Ur Specific [place] 1.020 (1.002-1.030) Urine Protein Negative (NEGATIVE) Urine Glucose (UA) Negative (NEGATIVE) Urine Ketones Negative (NEGATIVE) Urine Blood Negative (NEGATIVE) Urine Nitrite Negative (NEGATIVE) Urine Bilirubin Negative (NEGATIVE) Urine Urobilinogen 0.2 (0.20 - 1.00) E.U./dL Ur Leukocyte Esterase Negative (NEGATIVE) Disposition Clinical Impression: Lumbar strain Qualifiers: Encounter type: initial encounter Qualified Code(s): S39.012A - Strain of muscle, fascia and tendon of lower back, initial encounter Disposition: Home, Self-Care Condition: (1) Good Instructions: Low Back Strain (ED) Additional Instructions: follow up with Dr Mcmillan and he will call her tomorrow or see your family Dr take norco every 6 hours as needed for severe pain take znaflex every 8 hours Prescriptions: Tizanidine HCl [Zanaflex] 4 mg PO Q8HR #20 capsule Forms: Patient Portal Access Time of Disposition: 11:16 Quality - Quality Measures Quality Measures: N/A - Blood Pressure Screening Does Patient Have Any of the Following: No Blood Pressure Classification: Pre-Hypertensive BP Reading Systolic Measurement: 127 Diastolic Measurement: 76 Screening for High Blood Pressure: < Pre-Hypertensive BP, F/U Documented > [ [id number]] Pre-Hypertensive Follow-up Interventions: Referral to alternative/primary care provider.
[2018-06-13] MEDS ORDERED: METHYLPREDNISOLONE 80MG/VIAL IM ONE (11:32)
[2018-06-13] MEDS: METHYLPREDNISOLONE SOD 40MG/VIAL IVP ONE (11:43)
--- NOTE | 2018-06-14 10:22 | CT SCAN REPORT ---
EXAM: NONCONTRAST CT OF THE ABDOMEN AND PELVIS HISTORY: LEFT FLANK PAIN. TECHNIQUE: Noncontrast CT of the abdomen and pelvis was obtained. Comparison: CTA chest, abdomen and pelvis 01/30/17. FINDINGS: The lung bases are clear. Unremarkable noncontrast CT appearance of the liver, gallbladder, spleen, adrenal glands, and pancreas. No hydronephrosis. Punctate 2 mm right intrarenal calculus. Suggestion of small bilateral renal cortical cysts. There is a small 3 mm calcification in the inferior aspect of the urinary bladder lumen, otherwise unremarkable appearance of the urinary bladder. No focal colonic thickening or inflammatory change. The stomach and small bowel are not dilated. No free air or free fluid. Calcifications of the aortoiliac arterial access without aneurysmal dilatation. No acute osseous findings. Stimulator leads are seen entering the lower thoracic spine. IMPRESSION: 1. NO ACUTE ABDOMINAL OR PELVIC FINDINGS. 2. SMALL 3 MM CALCULUS WITHIN THE URINARY BLADDER. NO CALCULI ARE CURRENTLY SEEN WITHIN THE URETERS. NO HYDRONEPHROSIS. 3. NONOBSTRUCTING RIGHT INTRARENAL CALCULUS. 4. SUGGESTION OF SMALL BILATERAL RENAL CORTICAL CYSTS. JOB NUMBER: [id number] [facility]
== END 2018-06-13 12:05 | disposition home or self-care (01) ==
LOC: ER 09:13
DX: S39.012A Strain of muscle, fascia and tendon of lower back, initial encounter (principal); R20.2 Paresthesia of skin; N20.0 Calculus of kidney; X58.XXXA Exposure to other specified factors, initial encounter; Y92.009 Unspecified place in unspecified non-institutional (private) residence as the place of occurrence of the external cause; I25.2 Old myocardial infarction
CPT/HCPCS: 99284 ×2; 96374; 85025; 80048; 81003; 74176; J1885; J2920

== ENCOUNTER 2018-07-14 05:38 | Emergency (ER) | payer BC ==
[2018-07-14] MEDS ORDERED: 0.9 % SODIUM CHLORIDE 1000ML 1,000 ML IV SCH (05:45)
--- NOTE | 2018-07-14 05:52 | Emergency Department Record ---
History of Present Illness - General Chief complaint: Flank Pain Stated complaint: PAIN, KIDNEY STONE REMOVED YESTERDAY. Time Seen by Provider: 07/14/18 05:42 Source: Patient Mode of Arrival: Ambulatory Limitations: No limitations - History of Present Illness Initial comments: 73 yo female presents to ED for evaluation of post-operative flank and abdominal pain symptoms following a kidney stone removal and stent placement yesterday at [facility]. Patient denies fevers, chills, or vomiting symptoms. Patient reports that her pain symptoms have been present throughout the night following her surgery. Patient has been taking Oxycodone for her pain symptoms without improvement in her symptoms. MD Complaint: Other Onset/Timin -: Days(s) Radiation: R flank Severity: Moderate Quality: Aching Consistency: Constant Improves with: None Worsens with: None Patient : No Associated Symptoms: Denies other symptoms - Related Data Home Medications Medication Instructions Recorded Confirmed Last Taken Oxybutynin Chloride [Ditropan] 5 mg PO BID 07/14/18 07/14/18 07/13/18 Oxycodone HCl 0.5 tab PO Q6HR PRN 07/14/18 07/14/18 Unknown Phenazopyridine HCl 100 mg PO TID 07/14/18 07/14/18 07/13/18 Tamsulosin HCl [Flomax] 0.4 mg PO DAILY 07/14/18 07/14/18 07/13/18 Trazodone HCl 50 mg PO BID 07/14/18 07/14/18 07/13/18 Previous Rx's Medication Instructions Recorded Cephalexin [Keflex] 500 mg PO TID #20 cap 07/14/18 Allergies Allergy/AdvReac Type Severity Reaction Status Date / Time morphine Allergy "jumping Verified 06/13/18 11:05 out of her skin" meperidine [From Demerol] AdvReac Intermediate NAUSEA AND Verified 06/13/18 11: 05 VOMITING hydrocodone AdvReac VOMITING Verified 06/13/18 11:05 hydromorphone [From Dilaudid] AdvReac NAUSEA AND Verified 06/13/18 11:05 VOMITING Review of Systems Constitutional: Denies: Chills, Fever, Malaise, Night sweats Eyes: Denies: Eye discharge, Eye pain ENT: Denies: Congestion, Ear pain, Epistaxis Respiratory: Denies: Cough, Dyspnea Cardiovascular: Denies: Chest pain, Dyspnea on exertion Endocrine: Denies: Fatigue, Heat or cold intolerance Gastrointestinal: Reports: Abdominal pain, Nausea. Denies: Constipation, Vomiting Genitourinary: Reports: Hematuria. Denies: Incontinence, Retention Musculoskeletal: Reports: Back pain. Denies: Arthralgia Skin: Denies: Bruising, Change in color Neurological: Denies: Abnormal gait, Confusion, Headache, Seizure Psychiatric: Denies: Anxiety Hematological/Lymphatic: Denies: Anemia, Blood Clots Past Medical History - SOCIAL HISTORY Smoking Status: Never smoker Drug Use: None - RESPIRATORY Hx Respiratory Disorders: No - CARDIOVASCULAR Hx Cardio Disorders: Yes 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") Comment:: no stents needed post heart attack - NEURO Hx Neuro Disorders: Yes Hx Headaches: Yes Hx of Migraines: Yes - GI Hx GI Disorders: Yes Hx Reflux: Yes (occasionally) - Hx Genitourinary Disorders: Yes Hx Bladder Problem: Yes (up 4x night-on Detrol) - ENDOCRINE Hx Endocrine Disorders: Yes Hx Thyroid Disease: Yes - MUSCULOSKELETAL Hx Musculoskeletal Disorders: Yes Hx Back Injury: Yes Comment:: osteopenia, stenosis, bulging discs - PSYCH Hx Psych Problems: Yes Hx Depression: Yes (intermittent) Comment:: since -"broken heart syndrome" - HEMATOLOGY/ONCOLOGY Hx Hematology/Oncology Disorders: No Family Medical History Hx Cancer: Father, Mother Physical Exam - General General Appearance: Alert, Oriented x3, Cooperative, Moderate distress, Other ( Appears uncomfortable on examination) Limitations: No limitations - Head Head exam: Atraumatic, Normocephalic, Normal inspection Head exam detail: negative: Abrasion, Contusion, Otto's sign, General tenderness, Hematoma, Laceration - Eye Eye exam: Normal appearance. negative: Conjunctival injection, Periorbital swelling, Periorbital tenderness, Scleral icterus - ENT Ear exam: negative: Auricular hematoma, Auricular trauma Nasal Exam: negative: Active bleeding, Discharge, Dried blood, Foreign body Mouth exam: negative: Drooling, Laceration, Muffled voice, Tongue elevation - Neck Neck exam: Normal inspection. negative: Meningismus, Tenderness - Respiratory Respiratory exam: Normal lung sounds bilaterally. negative: Rales, Respiratory distress, Rhonchi, Stridor - Cardiovascular Cardiovascular Exam: Regular rate, Normal rhythm, Normal heart sounds - GI/Abdominal GI/Abdominal exam: Soft, Tenderness (TTP RLQ, no rebound or guarding on examination.). negative: Rebound, Rigid - Rectal Rectal exam: Deferred - exam: Deferred - Extremities Extremities exam: Normal inspection. negative: Pedal edema, Tenderness - Back Back exam: Reports: CVA tenderness (R). Denies: CVA tenderness (L) - Neurological Neurological exam: Alert, Normal gait, Oriented X3 - Psychiatric Psychiatric exam: Normal affect, Normal mood - Skin Skin exam: Normal color. negative: Abrasion Type of lesion: negative: abrasion Course - Reevaluation(s) Reevaluation #1: 07/14/18 06:44 Laboratory studies were reviewed and are grossly unremarkble for an acute acute process except for the following: WBC 12.3 UA reviewed: TNTC RBCs 10-15 WBCs Few bacteria Patient was updated on her results thus far, reports that her pain symptoms are improving following Toradol administration. CT report is pending. Reevaluation #2: 07/14/18 06:55 CT Abdomen and Pelvis: Internal right ureteral stent, no hydronephrosis or obstructing stone 1.3 cm hypodenisty right kidney, likely cyst. Small amount air in the lumen of the bladder. Constipation. Will consult Dr. Medina for further evaluation. Reevaluation #3: 07/14/18 07:04 Patient was updated on all results, pain improved to 4/10. Case was discussed with Dr. Medina, believes symptoms are likely due to stent irritation. All labs and CT imaging were reviewed with him as well. Will initiate Keflex for possible early UTI, administer Reglan/Benadryl for headache symptoms. Reevaluation #4: 07/14/18 07:51 Patient ambulating to the bathroom with steady gait, reports improvement in her headache symptoms and appears stable for discharge at this time. Medical Decision Making - Lab Data Result diagrams: 07/14/18 06:00 07/14/18 06:00 Disposition Disposition: Discharge Clinical Impression: Post-op pain UTI (urinary tract infection) Qualifiers: Urinary tract infection type: acute cystitis Hematuria presence: with hematuria Qualified Code(s): N30.01 - Acute cystitis with hematuria Headache Qualifiers: Headache type: unspecified Headache chronicity pattern: acute headache Intractability: not intractable Qualified Code(s): R51 - Headache Disposition: Home, Self-Care Condition: (2) Stable Instructions: Pain Management After Surgery (GEN) Additional Instructions: Return to ED if your symptoms worsen or if you have any concerns. Continue your medications as prescribed by Dr. Medina as directed. Keflex as directed. Follow-up with Dr. Medina in 1-3 days as directed. Prescriptions: Cephalexin [Keflex] 500 mg PO TID #20 cap Forms: Patient Portal Access Time of Disposition: 07:52 Quality - Quality Measures Quality Measures: N/A - Blood Pressure Screening Does Patient Have Any of the Following: Active Dx of HTN Blood Pressure Classification: Hypertensive Reading Systolic Measurement: 146 Diastolic Measurement: 78 Screening for High Blood Pressure: Patient Exclusion, Hx of HTN [G9744]
[2018-07-14 06:11] LABS: BASO % 0.2 % (0-6); HEMATOCRIT 42.6 % (35.0-47.0); LYMPH % 15.7 % (16-45); MEAN CELL VOLUME 87.1 fl (81-97); MEAN CORPUSCULAR HEMOGLOBIN 28.6 pg (27-33); MEAN CORPUSCULAR HGB CONC 32.9 g/dl (32-36); MEAN PLATELET VOLUME 12.1 fl (7.4-10.4); MONO % 7.1 % (0-9); PLATELET COUNT 180 K/uL (130-400); RED BLOOD COUNT 4.89 M/uL (3.80-5.40); RED CELL DISTRIBUTION WIDTH 13.5 % (11.5-14.5); WHITE BLOOD COUNT W/O DIFF 12.3 K/uL (4.2-12.2)
[2018-07-14 06:12] LABS: URINE APPEARANCE SL CLOUDY; URINE BILIRUBIN NEGATIVE (NEGATIVE); URINE BLOOD LARGE (NEGATIVE); URINE COLOR YELLOW; URINE KETONE NEGATIVE (NEGATIVE); URINE LEUKOCYTE ESTERASE TRACE (NEGATIVE); URINE NITRITE POSITIVE (NEGATIVE)
[2018-07-14 06:24] LABS: BILIRUBIN,TOTAL 0.4 mg/dL (0.2-1.0)
[2018-07-14 06:25] LABS: TOTAL PROTEIN 6.7 g/dL (6.6-8.7)
[2018-07-14 06:27] LABS: URINE BACTERIA FEW; URINE SQUAMOUS EPITHELIAL CELL 0 - 2 /hpf
[2018-07-14] MEDS ORDERED: KETOROLAC 30 MG/ML VIAL IVP ONE (06:28)
[2018-07-14] MEDS ORDERED: ONDANSETRON HCL IV 4 MG/2 ML VIAL IVP ONE (06:28)
[2018-07-14 06:29] LABS: ALB/GLOB RATIO 1.7 (1.1-1.8); ALBUMIN 4.2 g/dL (4.0-5.0)
[2018-07-14] MEDS ORDERED: DIPHENHYDRAMINE HCL 50 MG/ML VIAL IVP ONE (07:04)
[2018-07-14] MEDS ORDERED: METOCLOPRAMIDE HCL 10 MG/2 ML VIAL IVP ONE (07:04)
[2018-07-14] MEDS ORDERED: CEPHALEXIN 500 MG CAPSULE PO STA (07:06)
[2018-07-14] MEDS ORDERED: 0.9 % SODIUM CHLORIDE 1000ML 500 ML IV SCH (07:15)
--- NOTE | 2018-07-17 14:37 | CT SCAN REPORT ---
EXAM: CT SCAN ABDOMEN/PELVIS WO CONTRAST HISTORY: RIGHT FLANK PAIN. HEMATURIA. LITHOTRIPSY WITH STENT PLACEMENT ONE DAY AGO. TECHNIQUE: Thin-collimation helical CT examination of the abdomen and pelvis is performed without oral or intravenous contrast administration. Lack of oral and IV contrast utilization limits evaluation of the bowel and solid viscera, respectively. COMPARISON: CT abdomen and pelvis without contrast dated 06/13/2018. FINDINGS: There has been interval placement of a right ureteral stent with the superior pigtail looped within the renal collecting system pelvis and the inferior pigtail within the urinary bladder lumen. The previously demonstrated small nonobstructing calculus in the mid right kidney is no longer visualized at this level. There is again noted a 1.5 cm fluid-density mass in the posterior upper pole of the right kidney consistent with a cyst. No other renal mass identified. No hydronephrosis. There is a 2 mm calcification contiguous with the right posterior inferior wall of the urinary bladder. A similar calcification is noted on the prior examination, though a second bladder calcification previously demonstrated inferiorly in the midline is no longer visualized. A small amount of air is noted in the nondependent urinary bladder lumen consistent with recent instrumentation. Mild dependent atelectasis in each lung base. No pleural or pericardial effusion. The liver, spleen, pancreas, and adrenal glands are normal in appearance. The gallbladder is unremarkable and no biliary ductal dilatation is seen. No intraabdominal nor retroperitoneal lymphadenopathy. There is mild diffuse atherosclerosis without aneurysmal dilatation of the abdominal aorta nor iliac arteries. No new pelvic mass, lymphadenopathy, or free pelvic fluid. No gross bowel dilatation nor bowel wall thickening. No lytic or blastic bone lesion. IMPRESSION: 1. THE PREVIOUSLY DEMONSTRATED SMALL NONOBSTRUCTING CALCULUS IN THE RIGHT MID KIDNEY IS NO LONGER PRESENT. RIGHT URETERAL STENT IN PLACE WITHOUT HYDRONEPHROSIS. 2. STABLE RIGHT RENAL CYST. 3. THERE IS A SINGLE SMALL CALCIFICATION CONTIGUOUS WITH THE RIGHT POSTERIOR INFERIOR WALL OF THE URINARY BLADDER PROJECTING INTO THE LUMEN. TWO CALCIFICATIONS WERE PRESENT IN THE BLADDER ON THE PRIOR EXAMINATION. JOB NUMBER: [id number] [facility]
== END 2018-07-14 08:08 | disposition home or self-care (01) ==
LOC: ER 05:38
DX: G89.18 Other acute postprocedural pain (principal); R10.31 Right lower quadrant pain; N30.01 Acute cystitis with hematuria; R51 Headache; R11.2 Nausea with vomiting, unspecified; I10 Essential (primary) hypertension; Z87.442 Personal history of urinary calculi
CPT/HCPCS: 99284 ×2; 96374; 96375; 96361; 85025; 80053; 81001; 74176; J1885; J2405; J1200; J2765; J7030

== ENCOUNTER 2018-08-03 07:30 | Day surgery (SDC) | payer BC ==
--- NOTE | 2018-08-03 06:24 | History and Physical - [place] ---
CHIEF COMPLAINT/HISTORY OF CHIEF COMPLAINT: This patient presents with a history of an intractable lumbar radiculopathy. Due to the failure of therapy a spinal cord stimulator trial was conducted on 06/06/18 with 75-85% pain control. Due to the failure of all therapy and the success of the trial, the patient presents today for implantation of a permanent system. PAST MEDICAL HISTORY: Hypertension and hypothyroidism. PAST SURGICAL HISTORY: Appendectomy and cataract surgery. MEDICATIONS ON ADMISSION: List to be provided. ALLERGIES: List to be provided. No blood thinners. FAMILY/PSYCHOSOCIAL HISTORY: Social history - Noncontributory. Family history - Coronary artery disease and cancer. SYSTEMS REVIEW: The patient is appropriate in no acute distress. The remainder of the systems review is positive for glasses, headaches, thyroid disease, blood pressure problems, degenerative arthritis, and difficulty sleeping. PHYSICAL EXAMINATION: Height is 5'4", weight is 140. Vital signs - Blood pressure 140/80. Current examination shows diffuse tenderness lumbar spine. Range of motion does produces pain throughout the low back and extending into both lower extremities. There currently is no motor or sensory abnormalities in either leg. NEUROLOGIC: Cranial nerves are intact. IMPRESSION: INTRACTABLE LUMBAR RADICULOPATHY, ICD-10 CODE M54.16 AND M54.17. PLAN: The patient is here for an implanted spinal cord stimulator and internal generator. The procedure will be considered outpatient, although an overnight stay will be evaluated. JOB NUMBER: [id number] [facility]
[~2018-08-03 07:30] MED LIST changes: +CEFAZOLIN 2 Gram 2 GM/50 ML BAG IVPB ONE; +FAMOTIDINE 20MG TABLET PO ONE; +MECLIZINE 25 MG TABLET PO ONE; +METOCLOPRAMIDE 10 MG TABLET PO ONE
[2018-08-03] MEDS ORDERED: CEFAZOLIN 1G VIAL IM ONE (07:31)
[2018-08-03] MEDS ORDERED: PROPOFOL 10 MG/ML VIAL IV ONE (07:31)
[2018-08-03] MEDS ORDERED: MIDAZOLAM HCL 2MG/2ML VIAL IV ONE (07:31)
[2018-08-03] MEDS ORDERED: FENTANYL PF 100MCG/2ML VIAL IV ONE (07:31)
[2018-08-03] MEDS ORDERED: KETAMINE HCL 100MG/1ML VIAL INJ ONE (07:31)
[2018-08-03] MEDS ORDERED: KETOROLAC 30 MG/ML VIAL IVP ONE ×2 (07:31→10:28)
[2018-08-03] MEDS ORDERED: ONDANSETRON HCL IV 4 MG/2 ML VIAL IVP ONE (07:31)
[2018-08-03] MEDS ORDERED: 0.9 % SODIUM CHLORIDE 10 ML VIAL IVP ONE (07:31)
[2018-08-03] MEDS ORDERED: LIDOCAINE 2% MDV (20MG/ML) 20ML VIAL IV ONE (07:31)
[2018-08-03] MEDS ORDERED: OXYCODONE/APAP 10MG-325MG TABLET PO ONE (07:31)
[2018-08-03] MEDS ORDERED: LIDOCAINE 1% W/EPI 1:200,000 MPF 30ML SQ ONE ×2 (09:24)
[2018-08-03] MEDS ORDERED: BUPIVACAINE 0.5% W/EPI MPF 30 ML VIAL SQ ONE ×2 (09:24)
[2018-08-03] MEDS ORDERED: RINGERS SOLUTION,LACTATED 50 ML IV ONE (10:09)
--- NOTE | 2018-08-03 21:09 | Operative Note ---
DATE OF SURGERY: 08/03/2018 PREOPERATIVE DIAGNOSIS: INTRACTABLE LUMBAR RADICULOPATHY, ICD-10 CODE = M54.16 AND M54.17. POSTOPERATIVE DIAGNOSIS: INTRACTABLE LUMBAR RADICULOPATHY, ICD-10 CODE = M54.16 AND M54.17. SURGERY: 1. FLUOROSCOPIC-GUIDED EPIDURAL ACCESS LEFT T11-12, PLACEMENT OF SPINAL CORD STIMULATOR LEAD 1, A [employer] 16 WITH 6 ELECTRODES POSITIONED LEFT T7. 2. FLUOROSCOPIC-GUIDED EPIDURAL ACCESS LEFT T12-L1, PLACEMENT OF SPINAL CORD STIMULATOR LEAD 2, A [employer] 16 WITH 6 ELECTRODES POSITIONED RIGHT T7. 3. COMPLEX PROGRAMMING OF LEAD 1 OVER 20 MINUTES FOLLOWED BY COMPLEX PROGRAMMING OF LEAD 2 OVER 20 MINUTES. 4. INCISION, SUBCUTANEOUS DISSECTION, AND ANCHORING OF LEAD 1 AND LEAD 2 TO SUPRASPINOUS FASCIA WITH A [employer] LOCKING ANCHOR AND NONABSORBABLE SUTURE. 5. INCISION, SUBCUTANEOUS DISSECTION, AND CREATION OF SUBCUTANEOUS POUCH AT LEFT POSTERIOR GLUTEAL MARGIN FOR PLACEMENT OF GENERATOR IDENTIFIED A [employer] PROGRAMMABLE, RECHARGEABLE WAVEWRITER. 6. TUNNELING BETWEEN LEAD POUCH AND GENERATOR POUCH, PLACEMENT OF EXTERNAL PORTION OF LEAD 1 AND LEAD 2 INTO GENERATOR POUCH, EACH LEAD INTERFACED WITH THE GENERATOR. 7. PLACEMENT OF GENERATOR POUCH, PLACEMENT OF LEADS INTO POUCH, CLOSURE OF BOTH INCISIONS USING STRATAFIX SUTURE, #2-0 FASCIA AND #3-0 SKIN. DERMABOND CLOSURE APPROXIMATING THE EDGES OF BOTH WOUNDS. 8. COMPLEX PROGRAMMING, RECOVERY ROOM, INTERNAL GENERATOR HOME USE, TWO STIMULATORS, 20 MINUTES. SURGEON: ODIN FREIRE D.O. PRIMARY CARE PHYSICIAN: DR. EMEKA RICHTER ANESTHESIA: LOCAL SEDATION. ANESTHESIA PROVIDER: CHAVA KEENAN CRNA. INDICATIONS: This patient presents with a history of an intractable lumbar radiculopathy. Due to the failure of all therapy, a spinal cord stimulator trial was conducted with 75 to 85% pain control. Due to the failure of all other therapies and the success of the trial, the patient presents today for implantation of a permanent system. SURGERY: Intravenous line, vital sign monitoring, IV sedation. prepped and draped sterile technique, patient positioned prone. Sterile prep. Sterile technique. The epidural interspace left of the midline at 11-12 and 12-1 both infiltrated with local. Using two Epimed curved access needles, the epidural space was accessed. Atraumatic, no blood and no CSF. At 11-12, spinal cord stimulator lead 1, a [employer]ion 16 with 6 electrodes was positioned left at T7. With the epidural access at 12-1, spinal cord stimulator lead 2, a [employer] 16 with 6 electrodes was positioned right at T7. Complex programming of lead 1 over 20 minutes followed by complex programming of lead 2 over 20 minutes resulting in a complete pattern of stimulation across the back and into the legs. Patient indicating we had all the areas of the pain. She was given the option to implant, continue to program , or remove. She opted to implant. Questions were repeated with the same response. The skin above and below the needles was infiltrated with local and an incision made and subcutaneous dissection was conducted to the supraspinous fascia. The needles were removed and then each lead was anchored to the supraspinous fascia with a [employer] locking anchor and nonabsorbable suture. At the left posterior gluteal margin, a site picked by the patient for the generator, skin infiltrated, incision made and subcutaneous dissection was conducted to form a pouch of suitable size for the generator. Antibiotic irrigation and Bovie for hemostasis. A tunneling tool was used to carry the leads into the generator pouch and then each lead was interfaced with the generator. The generator was placed into the pouch and the leads were placed into their own pouch and both incisions were closed using STRATAFIX suture, #2- 0 fascia and #3-0 skin. A Dermabond closure was then used to approximate the edges of both wounds. She was transported to the Recovery Room stable. No side effects from the procedure or the sedation. The complex programming in the room had fully identified the areas of her pain. She was stable. She was showing no side effects from the procedure. She had full functionality of her extremities. There was nothing unusual or atypical with respect to her response to anesthesia. She was monitored in the Recovery Room until stable. By her request , she will be prepared for discharge. DISCHARGE INSTRUCTIONS: 1. The sites will remain clean and dry. Although the Dermabond will allow showering, she should not sit in water or a tub. 2. Standard medications resumed including the antibiotic, Levaquin. She will take 500 mg once a day for 14 days. 3. The office will contact the patient at home to set up a time in the next 7 to 10 days to evaluate the sites. Between now and then, she is to keep her activities low. Limit bend, lift, push, pull. All other instructions provided, numbers to contact if problems given. She was then discharged. cc: Dr. Emeka Richter JOB NUMBER: [id number] MTDD
--- NOTE | 2018-08-05 07:00 | RADIOLOGY REPORT ---
DATE: 08/03/2018. EXAM: THORACIC SPINE. HISTORY: STIMULATOR PLACEMENT. TECHNIQUE: Single portable AP view of the thoracic spine was performed. FINDINGS: The stimulator lead tips are at the T7 level. IMPRESSION: STIMULATOR LEAD TIPS ARE AT THE T7 LEVEL. Job Number: [id number] MTDD
== END 2018-08-03 11:30 | disposition home or self-care (01) ==
LOC: SUR 07:30
PROVIDERS: ATTEND Pain Medicine Interventional Pain Medicine
DX: M54.16 Radiculopathy, lumbar region (principal); M54.17 Radiculopathy, lumbosacral region; E03.9 Hypothyroidism, unspecified; K21.9 Gastro-esophageal reflux disease without esophagitis; Z98.61 Coronary angioplasty status
CPT/HCPCS: 63650; 63685; 01936; 95972; 72020; J1885; J2405; J3010; J0690; J3490; C1820; C1883; J7120

== ENCOUNTER 2018-09-22 16:57 | Emergency (ER) | payer BC ==
[2018-09-22] MEDS ORDERED: ALBUTEROL SULFATE (0.083%) 2.5 MG/3 ML NEB INH ONE (17:21)
--- NOTE | 2018-09-22 17:29 | Emergency Department Record ---
History of Present Illness - General Chief Complaint: Cough Stated Complaint: COUGH Time Seen by Provider: 09/22/18 17:21 Source: Patient Mode of Arrival: Ambulatory Limitations: No limitations - History of Present Illness Initial Comments: The patient is here due to a one week hx of cough and congestion. The patient was just overseas in [facility] and became ill. She did seek care there and was placed on Levaquin. The patient did come home 2 days ago and see her PCP who placed her on an albuterol inhaller. Since that visit the patient is feeling no better and is still coughing significantly. The patient additionally has developed cold sores around her nose and upper lip. The patient states she did have a fever last week but none since. MD Complaint: Cough Onset/Timin -: Week(s) - Related Data Previous Rx's Medication Instructions Recorded Prednisone [Prednisone 20Mg] 40 mg PO DAILY #8 tab 09/22/18 Allergies Allergy/AdvReac Type Severity Reaction Status Date / Time morphine Allergy "jumping Verified 09/22/18 17:32 out of her skin" meperidine [From Demerol] AdvReac Intermediate NAUSEA AND Verified 09/22/18 17:32 VOMITING hydrocodone AdvReac VOMITING Verified 09/22/18 17:32 hydromorphone [From Dilaudid] AdvReac NAUSEA AND Verified 09/22/18 17:32 VOMITING Review of Systems Constitutional: Reports: Malaise. Denies: Chills, Fever Eyes: Denies: Eye discharge ENT: Reports: Congestion Respiratory: Reports: Cough, Dyspnea. Denies: Hemoptysis, Stridor Cardiovascular: Reports: Dyspnea on exertion. 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") Comment:: no stents needed post heart attack - NEURO Hx Neuro Disorders: Yes Hx Headaches: Yes Hx of Migraines: Yes (occasional) - GI Hx GI Disorders: Yes Hx Reflux: Yes (occasionally) - Hx Genitourinary Disorders: Yes Hx Bladder Problem: Yes (up 4x night-on Detrol) Hx Kidney Stones: Yes (stent removed 07/21/18) Hx UTI: Yes - ENDOCRINE Hx Endocrine Disorders: Yes Hx Thyroid Disease: Yes - MUSCULOSKELETAL Hx Musculoskeletal Disorders: Yes Hx Arthritis: Yes (back,fingers) Hx Back Injury: Yes (1970s) Hx Osteoporosis: Yes Comment:: osteopenia, stenosis, bulging discs - PSYCH Hx Psych Problems: Yes Hx Depression: No (no problem now) Comment:: since -"broken heart syndrome" - HEMATOLOGY/ONCOLOGY Hx Hematology/Oncology Disorders: Yes Hx Cancer: Yes (appendix tip) Hx Chemotherapy: No Hx Radiation Therapy: No Family Medical History Hx Cancer: Father, Mother Hx Heart Disease: Brother/Sister Hx Kidney Disease: Brother/Sister *Kidney Comment: daughter-131 lithotripsies Physical Exam - General General Appearance: Alert, Oriented x3, Cooperative, No acute distress - Head Head exam: Atraumatic, Normocephalic, Normal inspection - Eye Eye exam: Normal appearance, PERRL, EOMI - ENT Nasal Exam: negative: Normal inspection (there are superficial ulcers around the nose L nares> R and to the upper lip.) Throat exam: Normal inspection. negative: Tonsillar erythema, Tonsillar exudate - Neck Neck exam: Normal inspection, Full ROM. negative: Tenderness - Respiratory Respiratory exam: Rhonchi (at the bases.). negative: Normal lung sounds bilaterally, Accessory muscle use, Respiratory distress - Cardiovascular Cardiovascular Exam: Regular rate, Normal rhythm, Normal heart sounds - GI/Abdominal GI/Abdominal exam: Soft, Normal bowel sounds. negative: Tenderness - Extremities Extremities exam: Normal inspection, Full ROM, Normal capillary refill. negative: Tenderness - Neurological Neurological exam: Alert. negative: Motor sensory deficit Course - Reevaluation(s) Reevaluation #1: The patient is doing better at this time. Her coughing is much improved and on exam her lungs are clear. The nebulizer did help her coughing a lot and she would like one for home. I did discuss the normal lab tests with the patient and the normal CXR. 09/22/18 18:13 Reevaluation #2: On exam the patient's lungs are clear with no wheezing or rhonchi. I did discuss the normal lab tests and neg CXR. The patient will obtain scripts for a nebulizer from Sneha Helm (ANA LAURA). I did discuss the workup with Sneha and she also agrees with the plan for discharge. The patient is to continue her present medicines and switch to the nebulizer tomorrow. She is to add the Prednisone as directed and see Dr. Adams early next week. 09/22/18 18:21 Reevaluation #3: The patient's weight prior to discharge was 134.75lbs. 09/23/18 07:00 Medical Decision Making - Lab Data Result diagrams: 09/22/18 17:30 09/22/18 17:30 Disposition Disposition: Discharge Clinical Impression: URI with cough and congestion Disposition: Home, Self-Care Condition: (2) Stable Instructions: Upper Respiratory Infection (ED) Additional Instructions: Please continue your regular medicines and switch to the nebulizer tomorrow. Please add the Prednisone tomorrow as directed. Please see your family doctor for recheck early next week and return to the ER for any worsening symptoms. Prescriptions: Prednisone [Prednisone 20Mg] 40 mg PO DAILY #8 tab Forms: Patient Portal Access Time of Disposition: 18:26 Quality - Quality Measures Quality Measures: N/A - Blood Pressure Screening View Details: Yes Does Patient Have Any of the Following: No Blood Pressure Classification: Pre-Hypertensive BP Reading Systolic Measurement: 138 Diastolic Measurement: 67 Screening for High Blood Pressure: < Pre-Hypertensive BP, F/U Documented > [[id number]] Pre-Hypertensive Follow-up Interventions: Referral to alternative/primary care provider.
[2018-09-22 17:43] LABS: ABSOLUTE NEUTROPHIL COUNT 4.08; BASO % 0.6 % (0-6); EOS % 3.5 % (0-6); GRAN % 59.7 % (47-80); HEMATOCRIT 43.4 % (35.0-47.0); HEMOGLOBIN 14.1 gm/dl (11.6-16.0); LYMPH % 28.6 % (16-45); MEAN CELL VOLUME 86.1 fl (81-97); MEAN CORPUSCULAR HGB CONC 32.5 g/dl (32-36); MEAN PLATELET VOLUME 11.9 fl (7.4-10.4); MONO % 7.6 % (0-9); PLATELET COUNT 184 K/uL (130-400); RED BLOOD COUNT 5.04 M/uL (3.80-5.40); RED CELL DISTRIBUTION WIDTH 14.3 % (11.5-14.5); WHITE BLOOD COUNT W/O DIFF 6.8 K/uL (4.2-12.2)
[2018-09-22 17:57] LABS: BILIRUBIN,TOTAL 0.3 mg/dL (0.2-1.0); CREATININE 1.1 mg/dL (0.5-0.9)
[2018-09-22 17:58] LABS: TOTAL PROTEIN 6.1 g/dL (6.6-8.7)
[2018-09-22 18:03] LABS: ALB/GLOB RATIO 1.9 (1.1-1.8)
[2018-09-22 18:15] LABS: C-REACTIVE PROTEIN 0.18 mg/dL (<0.5)
[2018-09-22] MEDS ORDERED: METHYLPREDNISOLONE PF 125MG/VIAL IVP ONE (18:23)
--- NOTE | 2018-09-24 08:58 | RADIOLOGY REPORT ---
EXAM: CHEST 2 VIEWS HISTORY: COUGH FOR TEN DAYS, RECENT TRAVEL. TECHNIQUE: Two views of the chest. COMPARISON: Chest radiograph, 09/20/18. FINDINGS: Cardiac silhouette within normal size limits. Lungs are hyperinflated. No new focal pulmonary opacities. No pleural effusion or pneumothorax. Mild diffuse thoracic spondylosis. Mid thoracic stimulator leads, similar from prior. IMPRESSION: 1. NO NEW/ACUTE LUNG FINDINGS. 2. PULMONARY HYPERINFLATION COMPATIBLE WITH COPD. JOB NUMBER: [id number] [facility]
== END 2018-09-22 18:52 | disposition home or self-care (01) ==
LOC: ER 16:57
DX: J06.9 Acute upper respiratory infection, unspecified (principal); R05 Cough; R09.81 Nasal congestion; R53.1 Weakness; R63.4 Abnormal weight loss; I25.2 Old myocardial infarction
CPT/HCPCS: 71046; 80053; 84145; 85025; 86140; 94640; 96374; 99284; J2930; J7613

== ENCOUNTER 2018-11-01 11:02 | Inpatient (IN) | payer BC ==
[~2018-11-01 11:02] MED LIST changes: -ACETAMINOPHEN 1,000 MG/100 ML BTL IV ONE; +CELECOXIB 100 MG CAPSULE PO ONE; +VANCOMYCIN 1GM/200ML PREMIX 1 GM/200 ML PIGGYBACK IVPB ONE
[2018-11-01 11:37] LABS: ABO GROUP A; RH TYPE POSITIVE
[2018-11-01] MEDS ORDERED: RINGERS SOLUTION,LACTATED 1,000 ML IV ONE ×2 (11:42→13:27)
[2018-11-01 12:23] LABS: ANTIBODY SCREEN NEGATIVE (NEGATIVE)
[2018-11-01] MEDS ORDERED: BUPIVACAINE 0.5% W/EPI MPF 30 ML VIAL SQ ONE (13:18)
[2018-11-01] MEDS ORDERED: TRANEXAMIC ACID 1,000 MG/10 ML ML IV ONE ×2 (14:00→15:55)
[2018-11-01] MEDS ORDERED: 0.9 % SODIUM CHLORIDE 10 ML VIAL IVP ONE (14:00)
[2018-11-01] MEDS ORDERED: AL HYDROX/MAG HYDROX 30ML UD PO PRN (14:28)
[2018-11-01] MEDS ORDERED: KETOROLAC 30 MG/ML VIAL IVP PRN ×2 (14:28)
[2018-11-01] MEDS ORDERED: HYDROCODONE/APAP 10/325 TABLET PO PRN (14:28)
[2018-11-01] MEDS ORDERED: ONDANSETRON HCL IV 4 MG/2 ML VIAL IVP PRN (14:28)
[2018-11-01] MEDS ORDERED: DIPHENHYDRAMINE HCL 25 MG CAPSULE PO PRN (14:28)
[2018-11-01] MEDS ORDERED: BISACODYL 10 MG SUPP RC PRN (14:28)
[2018-11-01] MEDS ORDERED: NALOXONE 0.4 MG/1 ML VIAL IVP PRN (14:28)
[2018-11-01] MEDS ORDERED: TRAMADOL HCL 50 MG TABLET PO PRN (14:28)
[2018-11-01] MEDS ORDERED: ROPIVACAINE HCL (NAROPIN) /PF 5MG/ML 20ML VIAL IV ONE (15:56)
[2018-11-01] MEDS ORDERED: DEXAMETHASONE 4 MG/ML 1ML VIAL IVP ONE (15:56)
[2018-11-01] MEDS ORDERED: FENTANYL PF 100MCG/2ML VIAL IV ONE (16:00)
[2018-11-01] MEDS ORDERED: MIDAZOLAM HCL 2MG/2ML VIAL IV ONE (16:00)
[2018-11-01] MEDS ORDERED: KETAMINE HCL 100MG/1ML VIAL INJ ONE (16:00)
[2018-11-01] MEDS ORDERED: PROPOFOL 10 MG/ML VIAL IV ONE (16:00)
[2018-11-01] MEDS ORDERED: LIDOCAINE 2% MDV (20MG/ML) 20ML VIAL IV ONE (16:00)
[2018-11-01] MEDS ORDERED: ONDANSETRON HCL IV 4 MG/2 ML VIAL IVP ONE (16:00)
[2018-11-01] MEDS: POTASSIUM CHLORIDE/D5-0.9%NACL 20 MEQ/1,000 ML BAG IV SCH (16:01)
[2018-11-01] MEDS: HYDROCODONE/APAP 10/325 TABLET PO PRN (17:24)
--- NOTE | 2018-11-01 17:40 | Rehab Evaluation ---
Patient Information - Patient Information Diagnosis: R knee OA Ordered Treatment: PT Evaluate and Treat Status: Initial Evaluation Surgery: Yes (R TKA) Date of Surgery: 11/01/18 Past Medical/Surgical Hx: PAST MEDICAL/SURGICAL HISTORY Past Surgical History SCS TRIAL AND IMPLANT cataract Bilat; appy; carpal tunnel rt;2010 cardiac cath; multiple injections for pain(Dr Mcmillan); rhizotomy lumbar; colonoscopy. kidney stone removal 2018& stent placement; knee scope right. stent removed 07/21/18 spinal stimulator trial 05/2018; SCS removal for kidney stone sx; PMH - Respiratory Hx Respiratory Disorders No Hx Bronchitis Yes Hx Pneumonia Yes: PMH - Cardiovascular Hx Cardiovascular Disorders Yes Hx Cardiac Catheterization Yes: 2010 Hx Edema Yes: rt knee Hx Heart Attack Yes: 2010 "broken heart syndrome" Exercise Tolerance Good Hx of Migraines Yes: occasional Comment: no stents needed post heart attack PMH - Neuro Hx Neurological Disorders Yes Hx Headaches Yes Hx Weakness Yes: gets more tired easily since pneumonia PMH - GI Hx Gastrointestinal Disorders Yes Hx Gastroesophageal Reflux Yes: occasionally Hx Weight Loss/Weight Gain Yes: 10 lb loss since trip PMH - Hx Genitourinary Disorders Yes Hx Bladder Problem Yes: up 4x night-on Detrol Hx Kidney Stones Yes: stent removed 07/21/18 Hx Renal Disease No Hx Urinary Tract Infection Yes PMH - Endocrine Hx Endocrine Disorders Yes Hx Thyroid Disease Yes PMH - Musculoskeletal Hx Musculoskeletal Disorders Yes Hx Arthritis Yes: back,fingers Hx Back Injury Yes: 1970s Hx Osteoporosis Yes Comment: osteopenia, stenosis, bulging discs PMH - Psych Hx Psychiatric Problems Yes Hx Depression No: no problem now Comment: since -"broken heart syndrome " PMH - Hematology/Oncology Hx Hematology/Oncology Yes Disorders Hx Cancer Yes: appendix tip Hx Chemotherapy No Hx Radiation Therapy No Premorbid Status: Detail (The patient was independent with all mobility prior to surgery with decreased weight bearing on R LE during ambulation.) Social History: Detail (The patient lives alone in a 2 story house with 5 steps at the enterance with one hand rail on the L. The patient's bathroom and bedroom are on the first floor with her clothes on the second. A flight stairs with one and 1/2 handrail are present between the first and second floors. The bathroom is equipped with : tub/shower combination with a glass door, grab bar, standard toilet with riser seat with handles. The patient has a walker with wheels, standard walker and standard cane.) Precautions: [place], Fall, Other (WBAT on the R LE) - Time With Patient Total Time Spent With Patient (Min): 30 Treatment Procedures: Detail (Initial Evaluation low complexity, gait training) Subjective Information - Subjective Information Per Patient (The patient had no pain complaints.) Objective Data - Mental Status Patient Orientation: Oriented x3 - Visual Perception Appears within normal limits for therapeutic activities - ROM Not within normal limits (The patient's R knee AROM was limited s/p surgery. All other LE AROM was WNL. T) - Strength/Tone Not within normal limits (R LE strength was not tested s/p surgery however was functional ie: patient was able to lift R LE in and out of bed. The patient's L LE strength was WFL.) - Bed Mobility Independent (The patient was independent with supine to and from sit transfer and scooting up in bed.) - Transfers Independent (The patient was independent with sit to and from stand transfer with verbal cues to push up and reach for surface.) - Balance Balance Sitting: Good Balance Standing: Good - Sensation Intact - Gait Detail (The patient ambulated with front wheeled walker WBAT on the R LE with CG of 1 for safety a distance of 100 feet x 1.) Therapy Assessment - Therapy Assessment Detail (The patient was independent with bed mobility and transfers and required CG of 1 for ambulation. Feel the patient will progress well with mobility.) Problem List - Problem List Physical Therapy Problem List: Detail (1) Decreased R LE strength and limited R knee AROM as to be expected following surgery.) Goals - Goals Physical Therapy Goals: 1) The patient will be independent with ambulation with front wheeled walker WBAT on the R LE community distances WBAT on the R LE. 2) The patient will ambulate on stairs independently using proper technique. 3) The patient will be independent with TKA HEP. Prognosis - Prognosis Good Plan - Plan Physical Therapy Plan: PT 1-2 sessions for gait training on levels and stairs and instruction in HEP.
[2018-11-01] MEDS: CEFAZOLIN 2 Gram 2 GM/50 ML BAG IVPB SCH (20:16)
[2018-11-01] MEDS: CALCIUM CARB/VITAMIN D 500MG/200IU PO SCH (21:51)
[2018-11-01] MEDS: DOCUSATE SODIUM 100 MG CAPSULE PO SCH (21:51)
[2018-11-01] MEDS: TRAZODONE 50 MG TABLET PO SCH (21:51)
[2018-11-01] MEDS: OXYBUTYNIN CHLORIDE 5MG TABLET PO SCH (21:51)
[2018-11-01] MEDS: ZOLPIDEM TARTRATE 5 MG TABLET PO PRN (21:52)
[2018-11-02] MEDS: POTASSIUM CHLORIDE/D5-0.9%NACL 20 MEQ/1,000 ML BAG IV SCH ×4 (00:05→23:09)
[2018-11-02] MEDS: HYDROCODONE/APAP 10/325 TABLET PO PRN (02:01)
[2018-11-02] MEDS: CEFAZOLIN 2 Gram 2 GM/50 ML BAG IVPB SCH ×2 (03:52→11:12)
[2018-11-02] MEDS: ACETAMINOPHEN W/ CODEINE 300MG/60MG TABLET PO PRN ×4 (05:43→18:33)
[2018-11-02] MEDS: LEVOTHYROXINE SODIUM 125 MCG TABLET PO SCH (06:08)
[2018-11-02] MEDS: ALENDRONATE 10 MG PO SCH (06:11)
[2018-11-02 06:54] LABS: HEMATOCRIT 35.1 % (35.0-47.0); HEMOGLOBIN 11.2 gm/dl (11.6-16.0)
[2018-11-02 07:14] LABS: BLOOD UREA NITROGEN 11 mg/dL (8-23); CREATININE 0.9 mg/dL (0.5-0.9); EST GLOMERULAR FILTRATION RATE > 60 mL/min; GLUCOSE,RANDOM 119 mg/dL (74-109)
[2018-11-02] MEDS: FERROUS SULFATE 325 MG TAB PO SCH (09:02)
[2018-11-02] MEDS: DOCUSATE SODIUM 100 MG CAPSULE PO SCH ×2 (09:02→22:05)
[2018-11-02] MEDS: RANITIDINE HCL 150 MG TABLET PO SCH (09:02)
[2018-11-02] MEDS: CALCIUM CARB/VITAMIN D 500MG/200IU PO SCH ×2 (09:02→22:05)
[2018-11-02] MEDS: RIVAROXABAN 10 MG TABLET PO SCH (09:02)
[2018-11-02] MEDS: TRAZODONE 50 MG TABLET PO SCH ×2 (09:02→22:06)
--- NOTE | 2018-11-02 10:37 | Rehab Evaluation ---
Patient Information - Patient Information Diagnosis: R knee OA Ordered Treatment: OT Evaluate and Treat Status: Initial Evaluation Surgery: Yes (R TKA) Date of Surgery: 11/01/18 Past Medical/Surgical Hx: PAST MEDICAL/SURGICAL HISTORY Past Surgical History SCS TRIAL AND IMPLANT cataract Bilat; appy; carpal tunnel rt;2010 cardiac cath; multiple injections for pain(Dr Mcmillan); rhizotomy lumbar; colonoscopy. kidney stone removal 2018& stent placement; knee scope right. stent removed 07/21/18 spinal stimulator trial 05/2018; SCS removal for kidney stone sx; PMH - Respiratory Hx Respiratory Disorders No Hx Bronchitis Yes Hx Pneumonia Yes: PMH - Cardiovascular Hx Cardiovascular Disorders Yes Hx Cardiac Catheterization Yes: 2010 Hx Edema Yes: rt knee Hx Heart Attack Yes: 2010 "broken heart syndrome" Exercise Tolerance Good Hx of Migraines Yes: occasional Comment: no stents needed post heart attack PMH - Neuro Hx Neurological Disorders Yes Hx Headaches Yes Hx Weakness Yes: gets more tired easily since pneumonia PMH - GI Hx Gastrointestinal Disorders Yes Hx Gastroesophageal Reflux Yes: occasionally Hx Weight Loss/Weight Gain Yes: 10 lb loss since trip PMH - Hx Genitourinary Disorders Yes Hx Bladder Problem Yes: up 4x night-on Detrol Hx Kidney Stones Yes: stent removed 07/21/18 Hx Renal Disease No Hx Urinary Tract Infection Yes PMH - Endocrine Hx Endocrine Disorders Yes Hx Thyroid Disease Yes PMH - Musculoskeletal Hx Musculoskeletal Disorders Yes Hx Arthritis Yes: back,fingers Hx Back Injury Yes: 1970s Hx Osteoporosis Yes Comment: osteopenia, stenosis, bulging discs PMH - Psych Hx Psychiatric Problems Yes Hx Depression No: no problem now Comment: since -"broken heart syndrome " PMH - Hematology/Oncology Hx Hematology/Oncology Yes Disorders Hx Cancer Yes: appendix tip Hx Chemotherapy No Hx Radiation Therapy No Premorbid Status: Detail (The patient was independent with all mobility, meal prep, laundry and home mgmt tasks prior to surgery with decreased weight bearing on R LE during ambulation. Pt reports her son mows her lawn.) Social History: Detail (The patient lives alone in a 2 story house plus basement with 5 steps at the entrance with one hand rail on the L. The patient's bathroom and bedroom are on the first floor with her clothes on the second floor and food stored in the basement. A flight of stairs with one and 1/2 handrail are present between the first and second floors. The bathroom is equipped with : tub/shower combination with a glass door, suction grab bar and shower seat and a standard height toilet with riser seat with handles. The patient has a 2 wheeled walker, 4 wheeled walker, standard walker and standard cane.) Precautions: [place], Fall, Other (WBAT on the R LE) - Time With Patient Total Time Spent With Patient (Min): 35 Treatment Procedures: Detail (OT eval low complexity) Subjective Information - Subjective Information Per Patient Objective Data - Pain Pain Present: Yes (10/03) - Mental Status Patient Orientation: Oriented x3 - Visual Perception Appears within normal limits for therapeutic activities (Pt wears glasses) - ROM Within normal limits ([place] UE AROM WNL) - Strength/Tone Within normal limits ([place] UE strength WNL) - Coordination Appears within normal limits for therapeutic activities - Bed Mobility Independent (Ind with supine to sit and sit to supine.) - Transfers Independent (Ind with sit to stand from EOB and chair height.) - Balance Balance Sitting: Good Balance Standing: Good - Sensation Intact - Gait Detail (Pt ambulating in hallway with 2 wheeled walker and SBA) - ADL's/IADL's Detail (Pt educated on modified LE dressing techniques. She was able to verbalize technique as she already had donned her shorts. Pt was able to demonstrate doffing of slipper socks and donning socks and slip on shoes. Reviewed kitchen, laundry and shower safety and modifications, pt able to juve balize understanding.) Therapy Assessment - Therapy Assessment Detail (Pt is Ind with modified LE dressing techniques. She is fearful of returning home alone but has no specific concerns. She reports she has family close by but they all work during the day. Reassured patient that she was able to demonstrate all OT skills without difficulty but she is worried about being alone. Notified manju Goyal mgr about pt concerns.) Problem List - Problem List Physical Therapy Problem List: Detail (1) Decreased R LE strength and limited R knee AROM as to be expected following surgery.) Occupational Therapy Problem List: Detail (No current OT problems identified.) Goals - Goals Physical Therapy Goals: 1) The patient will be independent with ambulation with front wheeled walker WBAT on the R LE community distances WBAT on the R LE. 2) The patient will ambulate on stairs independently using proper technique. 3) The patient will be independent with TKA HEP. Occupational Therapy Goals: No current IP OT goals identified. Prognosis - Prognosis Good Plan - Plan Physical Therapy Plan: PT 1-2 sessions for gait training on levels and stairs and instruction in HEP. Occupational Therapy Plan: No further IP OT recommended. Thank you for this referral.
--- NOTE | 2018-11-02 11:02 | Physical Therapy Tx Note ---
Physical Therapy Tx Note - Treatment Note Tolerated: Good Total Time Spent With Patient: 30 Physical Therapy Tx Note: Detail (The patient was up in chair when PT arrived. The patient reported minimal pain. The patient ambulated with front wheeled walker a distance of 220 feet WBAT on the R LE independently with verbal cues only for proper heel to toe weight pattern. The patient ambulated on 3 steps and 7 steps with use of one railing independently/supervision for safety only using proper technique. The patient completed TKA HEP including the following: seated heel slides, quad sets, hamstring sets, gluteal sets, SLR and ankle pumps and circles. The patient has met all inpatient goals but requested another practice session on stairs since she has flights of stairs to climb at home both to basement and upstairs where she keeps her clothes.) Physical Therapy Problem List: Detail (1) Decreased R LE strength and limited R knee AROM as to be expected following surgery.) Physical Therapy Goals: 1) The patient will be independent with ambulation with front wheeled walker WBAT on the R LE community distances WBAT on the R LE. (Goal Met). 2) The patient will ambulate on stairs independently using proper technique. 3) The patient will be independent with TKA HEP. (Goal Met) Physical Therapy Plan: PT 1-2 sessions for gait training stairs and review of HEP.
--- NOTE | 2018-11-02 13:50 | Operative Note ---
DATE OF SURGERY: 11/01/2018 PREOPERATIVE DIAGNOSIS: End-stage arthrosis of the right knee. POSTOPERATIVE DIAGNOSIS: End-stage arthrosis of the right knee. OPERATION: Cemented right total knee arthroplasty using Clemons [employer] Nephew Amna II components with a size 4 Oxinium femur, a size 3 stemmed tibia baseplate, a 9 mm lipped highly crosslinked tibial insert, and a 32 mm all-plastic patella. STAFF SURGEON: Juan Crook MD ANESTHESIA: Spinal. PREPARATION: Chloraprep. INDIVIDUAL CONSIDERATIONS: None. PROCEDURE: The patient was taken to the operating room, placed supine on the operating room table. She had a successful induction of a spinal anesthetic. The right lower extremity was prepped and draped in the usual fashion. The limb was elevated and tourniquet was inflated to 250 mmHg. The patient had a midline approach to the knee. Sharp dissection carried down through skin and subcutaneous tissue. Small veins were coagulated with a Bovie. A medial arthrotomy was performed. The patella was everted and the knee was flexed. The patient had basically exposed bone with bone loss in the patellofemoral compartment, exposed bone areas in both the medial and lateral compartments. Fat pad was resected, ACL was sacrificed, and provisional anterior meniscectomies were performed. The capsule was released from the medial proximal tibia. The initial femoral marketing director hole was then made freehand. The intramedullary femoral cutting jig was placed. It was cut in 7.0 degrees of valgus and adjusted for rotation and secured with pins for a 10 mm resection. The initial transverse cut was then made. The skin guide was placed at the anterior and posterior cutting blocks. It was found that a size 4 would be appropriate but I had to translate it anteriorly 2 mm. The anterior and posterior cuts were made. Osteophytes removed, and a size 4 trial was placed and found to fit well. The tibia was brought forward, and the remainder of the meniscal remnants removed with a Bovie. The extraarticular tibial cutting jig was placed. It was cut in neutral with a 3-degree AP slope. Care was taken to adjust for rotation and flexion using the extraarticular alignment guide and bony landmarks. It was set for a 9 mm resection keyed off the high lateral side and secured with pins. When cutting the tibia, care was taken to preserve the PCL insertion on the tibia. After removing osteophytes, and I could easily fit a size 3. It was adjusted for rotation and secured with pins. With a 9 mm trial and femoral trial, there was excellent motion and stability, ligamentous balance, and rotation alignment were thought to be normal. Femoral marketing director holes were impacted and the tri-flange tibial stamp was impacted, and these trial components were removed. The patient had a sufficient tibia measuring a little over 22-23 mm for tibial component. Compensating for cartilage and bone loss, I was able to make a cut and fit a 32 patella, and the 3 marketing director holes were drilled. The tourniquet was let down briefly to get bleeders posteriorly and then placed back up again. The knee was then thoroughly irrigated out with pulsatile Betadine and saline to remove any visual or palpable debris. Bony surfaces were then dried. A size 3 stemmed tibia baseplate was cemented into place followed by impaction of the 9 mm lipped tibial insert followed by cementing in the size 4 Oxinium femur followed by cementing in the 32 mm all-plastic patella. The implant surfaces were compressed, excess cement was removed. After the cement had set, there was excellent motion and stability, ligamentous balance, rotation alignment, and patellofemoral tracking were normal. No lateral release was required. After thorough irrigation, tourniquet was let down. Hemostasis was obtained with a Bovie. The capsule was then closed with a running #2 quill. Skin and periosteum were infiltrated with 30 mL of 0.5% Marcaine with epinephrine. The subcu was closed with 0 quill, skin was closed with freddie. Then 1 g of tranexamic acid was mixed with 30 mL of saline and injected into the knee through a sterile 18- gauge needle. A sterile bulky compressive SABA-type dressing was applied. The patient tolerated the procedure well. Needle and sponge counts were correct. Estimated blood loss was minimal, and she was taken back to recovery in good condition. There were no complications. NIKOLE
--- NOTE | 2018-11-02 15:23 | Physical Therapy Tx Note ---
Physical Therapy Tx Note - Treatment Note Physical Therapy Tx Note: Detail (Patient refused afternoon session due to R kn ee pain. Will see patient tomorrow for gait training on stairs. Anticipate discharge on 11/04/18.) Physical Therapy Problem List: Detail (1) Decreased R LE strength and limited R knee AROM as to be expected following surgery.) Physical Therapy Goals: 1) The patient will be independent with ambulation with front wheeled walker WBAT on the R LE community distances WBAT on the R LE. (Goal Met). 2) The patient will ambulate on stairs independently using proper technique. 3) The patient will be independent with TKA HEP. (Goal Met) Physical Therapy Plan: PT 1-2 sessions for gait training stairs and review of HEP.
[2018-11-02] MEDS: OXYBUTYNIN CHLORIDE 5MG TABLET PO SCH (22:06)
[2018-11-02] MEDS: ZOLPIDEM TARTRATE 5 MG TABLET PO PRN (23:19)
[2018-11-02] MEDS: ACETAMINOPHEN 325 MG TAB PO PRN (23:20)
[2018-11-03] MEDS: ACETAMINOPHEN W/ CODEINE 300MG/60MG TABLET PO PRN ×6 (03:21→21:00)
[2018-11-03] MEDS: ACETAMINOPHEN 325 MG TAB PO PRN ×3 (03:21→13:43)
[2018-11-03 06:09] LABS: HEMATOCRIT 35.4 % (35.0-47.0); HEMOGLOBIN 11.1 gm/dl (11.6-16.0)
[2018-11-03 06:21] LABS: BLOOD UREA NITROGEN 11 mg/dL (8-23); CREATININE 0.9 mg/dL (0.5-0.9); EST GLOMERULAR FILTRATION RATE > 60 mL/min; GLUCOSE,RANDOM 93 mg/dL (74-109)
[2018-11-03] MEDS: LEVOTHYROXINE SODIUM 125 MCG TABLET PO SCH (06:26)
[2018-11-03] MEDS: ALENDRONATE 10 MG PO SCH (06:26)
[2018-11-03] MEDS: POTASSIUM CHLORIDE/D5-0.9%NACL 20 MEQ/1,000 ML BAG IV SCH (06:57)
[2018-11-03] MEDS: TRAZODONE 50 MG TABLET PO SCH ×2 (09:43→21:00)
[2018-11-03] MEDS: RIVAROXABAN 10 MG TABLET PO SCH (09:43)
[2018-11-03] MEDS: CALCIUM CARB/VITAMIN D 500MG/200IU PO SCH ×2 (09:43→21:00)
[2018-11-03] MEDS: DOCUSATE SODIUM 100 MG CAPSULE PO SCH ×2 (09:43→21:00)
[2018-11-03] MEDS: RANITIDINE HCL 150 MG TABLET PO SCH (09:43)
[2018-11-03] MEDS: FERROUS SULFATE 325 MG TAB PO SCH (09:43)
--- NOTE | 2018-11-03 11:57 | Physical Therapy Tx Note ---
Physical Therapy Tx Note - Treatment Note Tolerated: Fair Total Time Spent With Patient: 30 Physical Therapy Tx Note: Detail (Pt was supine reclined in bed upon arrival. Pt states having a lot of pain today. Pt states also having some medical difficulties and needed to have a catheter to urinate. Pt states 8/10 pain today. Pt was able to do all bed transfers independently but slowly and with pain. Pt completed ex's of ankle pumps, gluteal squeezes x 10 each. Pt states pain increases with activity. Pt ambulated x 40 feet with front wheeled walker, returned to room due to being nauseous and returned to bed with walter aaliyah to decrease nausea. Unable to compete stairs today. Pt is planned to be discharged 11/04/18 in the evening. Pt to be seen x 1 visit to confirm ability on stairs.) Physical Therapy Problem List: Detail (1) Decreased R LE strength and limited R knee AROM as to be expected following surgery.) Physical Therapy Goals: 1) The patient will be independent with ambulation with front wheeled walker WBAT on the R LE community distances WBAT on the R LE. (Goal Met). 2) The patient will ambulate on stairs independently using proper technique. 3) The patient will be independent with TKA HEP. (Goal Met) Prognosis: Good Physical Therapy Plan: PT 1-2 sessions for gait training stairs and review of HEP.
[2018-11-03] MEDS: ONDANSETRON 4 MG ODT TABLET SL PRN (18:03)
[2018-11-03] MEDS: MAGNESIUM HYDROXIDE 30 ML UDC PO PRN (18:05)
[2018-11-03] MEDS: OXYBUTYNIN CHLORIDE 5MG TABLET PO SCH (21:00)
[2018-11-03] MEDS: ZOLPIDEM TARTRATE 5 MG TABLET PO PRN (21:01)
[2018-11-04] MEDS: ACETAMINOPHEN W/ CODEINE 300MG/60MG TABLET PO PRN ×4 (01:30→14:50)
[2018-11-04] MEDS: LEVOTHYROXINE SODIUM 125 MCG TABLET PO SCH (06:26)
[2018-11-04] MEDS: ALENDRONATE 10 MG PO SCH (06:26)
[2018-11-04] MEDS: RANITIDINE HCL 150 MG TABLET PO SCH (10:30)
[2018-11-04] MEDS: MAGNESIUM HYDROXIDE 30 ML UDC PO PRN (10:30)
[2018-11-04] MEDS: TRAZODONE 50 MG TABLET PO SCH (10:30)
[2018-11-04] MEDS: ACETAMINOPHEN 325 MG TAB PO PRN ×2 (10:30→14:49)
[2018-11-04] MEDS: RIVAROXABAN 10 MG TABLET PO SCH (10:31)
[2018-11-04] MEDS: FERROUS SULFATE 325 MG TAB PO SCH (10:31)
[2018-11-04] MEDS: DOCUSATE SODIUM 100 MG CAPSULE PO SCH (10:31)
[2018-11-04] MEDS: CALCIUM CARB/VITAMIN D 500MG/200IU PO SCH (10:31)
[2018-11-04] MEDS: ONDANSETRON 4 MG ODT TABLET SL PRN (10:37)
[2018-11-04] MEDS ORDERED: CIPROFLOXACIN HCL 500 MG TABLET PO SCH (13:15)
--- NOTE | 2018-11-04 15:06 | Physical Therapy Tx Note ---
Physical Therapy Tx Note - Treatment Note Tolerated: Good (Pt. became nauseous at end of gait training, requested to end tx seated in chair.) Total Time Spent With Patient: 50 Physical Therapy Tx Note: Detail (Pt. ambulated with CGA for 80 feet with front wheeled walker, pt. required two rest breaks. Pt. ascended and descended three steps with CGA x2 using front wheeled walker, pt. appropriately used AD with proper gait mechanics. Pt. was independent with bed mobility and transfer to and from chair. Pt. required PT assistance with holding walker to stabilize AD on step. Pt. verbalized understanding of need for family support with holding the AD during stairs when getting into and out of the home, and her grandson lives close by and is able to help when ambulating into and out of the home. Pt. was left seated with call light available, nursing to help with application of cryo at RLE.) Physical Therapy Problem List: Detail (1) Decreased R LE strength and limited R knee AROM as to be expected following surgery.) Physical Therapy Goals: 1) The patient will be independent with ambulation with front wheeled walker WBAT on the R LE community distances WBAT on the R LE. (Goal Met). 2) The patient will ambulate on stairs independently using proper technique. (met). 3) The patient will be independent with TKA HEP. (Goal Met) Prognosis: Good (Pt. no longer requires inpatient PT services.) Physical Therapy Plan: D/C pt. from inpatient PT.
--- NOTE | 2018-11-07 10:10 | Discharge Summary ---
DATE OF ADMISSION: 11/01/2018 DATE OF DISCHARGE: 11/04/2018 DATE OF SURGERY: 11/01/2018 HISTORY OF PRESENT ILLNESS: The patient is a delightful 73-year-old female who presents with endstage arthrosis of her right knee. She was admitted after right total knee arthroplasty. Postoperatively she did well. Initially, she was going to go to rehab, but she did not qualify because she did so well. PLAN: Discharge her home in care of her family, home PT and visiting nurse has been arranged. She will be given Tylenol 4 for pain. She will be given Xarelto followed by aspirin for DVT prophylaxis. She did also develop urinary retention, initially she did well but she just started dribbling, so the plan was to just go ahead and send her home with a Armenta to decompress her bladder. We will cover her with Cipro while she has the Armenta. The visiting nurse will remove the Armenta in 5 days and then follow her with bladder scans after that. The visiting nurse will also remove the sutures in 2 weeks and she will follow up in my office in 4 weeks. FINAL DIAGNOSIS: Endstage arthrosis of the right knee. SECONDARY DIAGNOSES: 1. Acute operative blood loss anemia. 2. Urinary retention. OPERATIONS AND PROCEDURES: Cemented right total knee arthroplasty. NIKOLE
== END 2018-11-04 18:25 | disposition home health service (06) | DRG 470 ==
LOC: MEDSURG 11:02 → EDSTATUS 13:00
PROVIDERS: ADMIT Orthopaedic Surgery; ATTEND Orthopaedic Surgery
PROC: 0SRC069 Replacement of Right Knee Joint with Oxidized Zirconium on Polyethylene Synthetic Substitute, Cemented, Open Approach (ICD-10-PCS; principal; 2018-11-01 13:00)
DX: M17.11 Unilateral primary osteoarthritis, right knee (principal); C18.1 Malignant neoplasm of appendix; K21.9 Gastro-esophageal reflux disease without esophagitis; Z98.61 Coronary angioplasty status; I25.2 Old myocardial infarction; M48.00 Spinal stenosis, site unspecified
CPT/HCPCS: 76942; 80048; 85014; 85018; 86850; 86900; 86901; J1885; J2405; J3370; J3480; J3490; J7120

== ENCOUNTER 2019-01-11 05:37 | Day surgery (SDC) | payer BC ==
[2019-01-11] MEDS ORDERED: FENTANYL PF 100MCG/2ML VIAL IV ONE (05:38)
[2019-01-11] MEDS ORDERED: LIDOCAINE 2% MDV (20MG/ML) 20ML VIAL IV ONE (05:38)
[2019-01-11] MEDS ORDERED: MIDAZOLAM HCL 2MG/2ML VIAL IV ONE (05:38)
[2019-01-11] MEDS ORDERED: PROPOFOL 10 MG/ML VIAL IV ONE (05:38)
[2019-01-11] MEDS ORDERED: RINGERS SOLUTION,LACTATED 1,000 ML IV ONE (06:17)
[2019-01-11] MEDS ORDERED: DEXAMETHASONE PRESERVATIVE FREE 10MG/ML VIAL SQ ONE (07:32)
[2019-01-11] MEDS ORDERED: BUPIVACAINE 0.5% W/EPI MPF 30 ML VIAL SQ ONE (07:32)
[2019-01-11] MEDS ORDERED: LIDOCAINE 1% W/EPI 1:200,000 MPF 30ML SQ ONE (07:32)
[2019-01-11] MEDS ORDERED: BUPIVACAINE 0.25% PF (2.5MG/ML) 10ML VIAL IM ONE (07:32)
--- NOTE | 2019-01-11 16:20 | Operative Note ---
DATE OF SURGERY: 01/11/2019 PREOPERATIVE DIAGNOSIS: Lumbar radiculopathy, ICD10 code M54.16 and M54.17. OPERATION: Fluoroscopic-guided bilateral lumbar epidural injection at L4-5. ANESTHESIA: Local with sedation. ANESTHESIA PROVIDER: Angel Rodriguez INDICATION: This patient presents with pain which starts in the back but then extends into the hips and legs. The diagnostics do show a primary 4-5 disc which reflects the pattern of pain. PROCEDURE: Intravenous line, vital sign monitoring, IV sedation, prepped and draped in sterile technique. Under imaging, the epidural interspace at L4-5 identified and marked bilaterally. The pattern of pain is bilateral. Skin infiltrated. Two separate 18-gauge Tuohy needles, one left and one right of the midline using a loss of resistance technique. Atraumatic. No blood, no CSF. Then 5 mL 0.125% Marcaine with dexamethasone injected first left, then right. Both needles removed. Back cleaned. Topical antibiotic and sterile dressing applied. Will monitor and evaluate. MTDD
== END 2019-01-11 08:09 | disposition home or self-care (01) ==
LOC: SUR 05:37
PROVIDERS: ATTEND Pain Medicine Interventional Pain Medicine
DX: M54.16 Radiculopathy, lumbar region (principal); M54.17 Radiculopathy, lumbosacral region; E03.9 Hypothyroidism, unspecified; I25.2 Old myocardial infarction
CPT/HCPCS: J7120

== ENCOUNTER 2019-03-31 05:32 | Day surgery (SDC) | payer BC ==
[2019-03-31] MEDS ORDERED: LIDOCAINE 2% MDV (20MG/ML) 20ML VIAL IV ONE (05:33)
[2019-03-31] MEDS ORDERED: LABETALOL HCL 5MG/ML, 20ML VIAL IV ONE (05:33)
[2019-03-31] MEDS ORDERED: MIDAZOLAM HCL 2MG/2ML VIAL IV ONE (05:33)
[2019-03-31] MEDS ORDERED: FENTANYL PF 100MCG/2ML VIAL IV ONE (05:33)
[2019-03-31] MEDS ORDERED: PROPOFOL 10 MG/ML VIAL IV ONE (05:33)
[2019-03-31] MEDS ORDERED: RINGERS SOLUTION,LACTATED 1,000 ML IV ONE ×2 (05:55→08:42)
[2019-03-31] MEDS ORDERED: CEFAZOLIN 2 Gram 2 GM/50 ML BAG IVPB ONE (06:00)
[2019-03-31] MEDS ORDERED: FAMOTIDINE 20MG TABLET PO ONE (06:00)
[2019-03-31] MEDS ORDERED: MECLIZINE 25 MG TABLET PO ONE (06:00)
[2019-03-31] MEDS ORDERED: ACETAMINOPHEN 1,000 MG/100 ML BTL IVPB ONE (06:00)
[2019-03-31] MEDS ORDERED: METOCLOPRAMIDE 10 MG TABLET PO ONE (06:00)
--- NOTE | 2019-03-31 06:21 | History and Physical - Ferro ---
CHIEF COMPLAINT/HISTORY OF CHIEF COMPLAINT: This patient presents with a history of a lumbar radiculopathy which has been characterized as neurogenic intermittent claudication secondary to lumbar spinal stenosis. Her pain pattern is bilateral lower extremity, it is aggravated and initiated with activity and it seems to subside with sitting and certainly subsided with forward bending. Diagnostic imaging of the lumbar spine shows multiple levels of spinal stenosis including the primary level at L4-L5. Treatment history has been extensive going back a number of years perhaps 10-15. Due to the failure of therapy, she is here for interspinal spacer placement. PAST MEDICAL HISTORY: Hypertension and hypothyroidism. PAST SURGICAL HISTORY: Appendectomy, cataract surgery, and spinal cord stimulator implant. MEDICATIONS ON ADMISSION: List to be provided. ALLERGIES: List to be provided. No blood thinners. FAMILY/PSYCHOSOCIAL HISTORY: Social history - Noncontributory. Family history - Coronary artery disease and cancer. SYSTEMS REVIEW: The patient is appropriate in no acute distress. The remainder of the systems review is positive for glasses, headaches, thyroid disease, blood pressure, degenerative arthritis, and difficulty sleeping. PHYSICAL EXAMINATION: Height is 5'4", weight is 140. No vital signs. HEENT: Within normal limits. LUNGS: Clear. HEART: Rapid and regular. ABDOMEN: Nontender. MUSCULOSKELETAL: Examination of the musculoskeletal system shows pain into both lower extremities across the front and back surface. Ambulation initiates the pain, forward bending and sitting causes the pain to subside and be controlled. Sensory narvaez are intact. NEUROLOGIC: Cranial nerves are intact. IMPRESSION: LUMBAR SPINAL STENOSIS WITH NEUROGENIC INTERMITTENT CLAUDICATION, ICD-10 CODE M48.062. PLAN: The patient is here for an interspinal spacer - Vertiflex for indirect lumbar decompression at L4-L5. The potential risks, side effects and complications have all been reviewed and discussed. She has been put in contact with a clinical specialist from the company. The procedure will be outpatient. A small incision will be made at the interspace of L4-L5. The incision will be closed either with sutures or freddie. She will be seen in 10-14 days. The total period of restrictions is six weeks. She understands and her questions have been answered. JOB NUMBER: [id number] MTDD
[2019-03-31] MEDS ORDERED: LIDOCAINE 1% W/EPI 1:200,000 MPF 30ML SQ ONE ×2 (07:32)
[2019-03-31] MEDS ORDERED: BUPIVACAINE 0.5% W/EPI MPF 30 ML VIAL SQ ONE ×2 (07:32)
[2019-03-31] MEDS ORDERED: CEFAZOLIN 1G VIAL IR ONE (07:33)
[2019-03-31] MEDS ORDERED: FENTANYL PF 100MCG/2ML VIAL IVP ONE ×4 (08:16→08:41)
[2019-03-31] MEDS ORDERED: HYDROCODONE/APAP 7.5/325MG TABLET PO ONE (09:10)
--- NOTE | 2019-03-31 10:05 | Operative Note - Ferro ---
DATE OF SURGERY: 03/31/2019 PREOPERATIVE DIAGNOSIS: LUMBAR SPINAL STENOSIS WITH NEUROGENIC INTERMITTENT CLAUDICATION, ICD-10 CODE M48.062. OPERATION: FLUOROSCOPICALLY GUIDED PLACEMENT OF INTERSPINOUS PROCESS SPACER - INDIRECT SPINAL DECOMPRESSION - VERTIFLEX AT L4-L5. SURGEON: Kg Mcmillan D.O. ANESTHESIA PROVIDER: SAUL Jean CRNA INDICATION: This patient presents with pain which is bilateral lower extremity. Symptom pattern consistent with neurogenic intermittent claudication. Due to the failure of therapy she is here for interspinal spacer placement at L4-L5 for indirect decompression spinal stenosis. PROCEDURE: Intravenous line, vital sign monitoring, IV sedation, prepped and draped, sterile technique. The patient is positioned prone. Sterile prep, sterile technique. Under imaging the spinal interspace at L4-L5 was marked, the distance between the spinous processes was infiltrated with local using AP and lateral imaging to identify midline. A scalpel blade was then used to incise down in between the spinous processes with a 22-gauge spinal needle used to identify direction and approach. Using AP and lateral images a dilator was placed between the spinous processes and positioned on lateral imaging posterior to the lamina. A second dilator was then inserted over the first and positioned between the spinous processes at L4 and L5 distracting the spinous process and opening the space posterior to the lamina. A gauge device was then inserted to measure the distance between the spinous processes and identify the appropriate spacer size. A #14 interspinal spacer was then selected and placed with the device in between the spinous processes. It was slowly expanded distracting the spinous processes at L4 and L5. The devices were removed, antibiotic irrigation was performed, AP and lateral imaging was used to confirm the appropriate position of the spacer distracting the spinous process at L4 and L5. A 2-0 Vicryl was then used to approximate the wound fascia and then the skin was closed with freddie and an Op-Site dressing was placed. She tolerated the procedure without difficulty. She was transported to the Recovery Room stable. DISCHARGE INSTRUCTIONS: 1. The site is to remain clean and dry. 2. Standard medications resumed. A script for Boling pain control has been provided for seven days. A prescription for Levaquin the antibiotic 500 mg once a day for fourteen days will be provided through the hospital. 3. Office to contact the patient in 12-24 hours to set up a time in 7-10 days for us to evaluate the sites. Her total restriction period is six weeks. During this period of time she will limit anything heavy, bend, lift, push, pull. She will be seen and evaluated on an ongoing basis at two week intervals for six weeks. She tolerated the procedure without difficulty. She was discharged. JOB NUMBER: [id number] MTDD
--- NOTE | 2019-04-02 06:12 | RADIOLOGY REPORT ---
EXAMINATION: Lumbar Spine Single View EXAM DATE: 03/31/2019 9:49 AM TECHNIQUE: Single AP view of the lumbar spine INDICATION: S/P VERTIFLEX IMPLANT @ 07/29 COMPARISON: 03/10/2019 and 08/03/2018 ENCOUNTER: Initial FINDINGS: Since the prior study, an implant has been placed at the L4-L5 disc level. The intraspinal stimulator is again seen with leads in the thoracic spinal canal. The electrodes on this lead has changed posit ion slightly since earlier study of 08/03/2018. Previously, both electrodes extended to the T7 level. One is now at the T8 level. The other remains at the T7 level. IMPRESSION: 1. Interval placement of an implant at the L4-L5 disc level. 2. Interval change in position of one of the thoracic intraspinal leads. Dictated by: Nolan Engle MD on 04/02/2019 6:06 AM. .
== END 2019-03-31 09:32 | disposition home or self-care (01) ==
LOC: SUR 05:32
PROVIDERS: ATTEND Pain Medicine Interventional Pain Medicine
DX: M48.062 Spinal stenosis, lumbar region with neurogenic claudication (principal); K21.9 Gastro-esophageal reflux disease without esophagitis; R35.0 Frequency of micturition; I25.2 Old myocardial infarction
CPT/HCPCS: 72020; C1821; J0690; J7120

== ENCOUNTER 2019-05-31 05:35 | Day surgery (SDC) | payer BC ==
[2019-05-31] MEDS ORDERED: PROPOFOL 10 MG/ML VIAL IV ONE (05:36)
[2019-05-31] MEDS ORDERED: LIDOCAINE 2% MDV (20MG/ML) 20ML VIAL IV ONE (05:36)
[2019-05-31] MEDS ORDERED: FENTANYL PF 100MCG/2ML VIAL IV ONE (05:36)
[2019-05-31] MEDS ORDERED: MIDAZOLAM HCL 2MG/2ML VIAL IV ONE (05:36)
[2019-05-31] MEDS ORDERED: RINGERS SOLUTION,LACTATED 1,000 ML IV ONE (05:45)
[2019-05-31] MEDS ORDERED: LIDOCAINE 1% W/EPI 1:200,000 MPF 30ML SQ ONE (08:02)
[2019-05-31] MEDS ORDERED: DEXAMETHASONE PRESERVATIVE FREE 10MG/ML VIAL SQ ONE (08:02)
[2019-05-31] MEDS ORDERED: BUPIVACAINE 0.5% W/EPI MPF 30 ML VIAL SQ ONE (08:02)
[2019-05-31] MEDS ORDERED: BUPIVACAINE 0.5% (5MG/ML) PF 30ML VIAL SQ ONE (08:02)
--- NOTE | 2019-05-31 09:30 | Operative Note - Ferro ---
DATE OF SURGERY: 05/31/2019 PREOPERATIVE DIAGNOSIS: RIGHT LUMBAR SPONDYLOSIS WITH SACROILIITIS, ICD-10 CODE M46.1. OPERATION: FLUOROSCOPICALLY GUIDED RIGHT SACROILIAC JOINT INJECTION. SURGEON: Kg Mcmillan D.O. ANESTHESIA: [] ANESTHESIA PROVIDER: [] INDICATION: This patient presents with pain which is right sided low back and hip. Examination shows tenderness lumbar spine. Range of motion does produce pain to the hip with extension. There are diagnostics confirming spondylitic change. Primary pain directly over the sacroiliac on the right. PROCEDURE: Intravenous line, vital sign monitoring, IV sedation, prepped and draped, sterile technique. The skin under the sacroiliac joint marked, infiltrated, 22-gauge 3-1/2 inch needle into the sacroiliac with 3 ml of 0.5% Marcaine with Dexamethasone injected. The area was cleaned, topical antibiotic, sterile dressing applied. Will monitor and evaluate. JOB NUMBER: [id number] MTDD
== END 2019-05-31 08:30 | disposition home or self-care (01) ==
LOC: SUR 05:35
PROVIDERS: ATTEND Pain Medicine Interventional Pain Medicine
DX: M46.1 Sacroiliitis, not elsewhere classified (principal); E03.9 Hypothyroidism, unspecified; I25.2 Old myocardial infarction
CPT/HCPCS: 64451; 01992; J1100; J3010; J7120